=== PATIENT | female | born 1940 | race Caucasian/White ===

== ENCOUNTER → 2020-05-13 15:48 | Outpatient (BNVA) | payer MEDICARE, MEDICAID, SELFPAY | PROVIDERS: Family Provider Internal Medicine; Referring Provider Dermatology; Visit Provider Dermatology | DX: L57.0 Actinic keratosis (principal); L82.1 Other seborrheic keratosis; L81.4 Other melanin hyperpigmentation | CPT/HCPCS: 17000; 17003; 99203 ==

== ENCOUNTER 2020-07-13 13:22 | Outpatient (CLI) | payer MEDICARE, MEDICAID, SELFPAY ==
--- NOTE | 2020-07-13 13:31 | MM_ITS ---
WS: [id number] BILATERAL SCREENING DIGITAL MAMMOGRAM WITH CAD HISTORY: SCREENING COMPARISON: 01/08/2019, 12/28/2017 and 12/19/2016 Bilateral CC and MLO views submitted. Computer aided detection analyzed. Breast composition: There are scattered areas of fibroglandular density. No suspicious masses, microc alcifications or architectural distortion. Numerous benign calcifications and scattered nodules and a symmetries. Stable over multiple prior years. MM/[place] [id number] IMPRESSION: BI-RADS: 2-Benign FOLLOW UP: 1 Year Follow-up
== END 2020-07-13 13:23 | disposition home or self-care (01) ==
LOC: RADSHAW 13:26
PROVIDERS: PCP Internal Medicine; Visit Provider Internal Medicine
DX: Z12.31 Encounter for screening mammogram for malignant neoplasm of breast (principal)
CPT/HCPCS: 77067

== ENCOUNTER 2020-12-21 15:09 | Outpatient (CLI) | payer MEDICARE, MEDICAID, SELFPAY ==
--- NOTE | 2020-12-21 15:18 | XRR_ITS ---
PROCEDURE INFORMATION: Exam: XR Left Ribs with PA Chest Exam date and time: 12/21/2020 3:33 PM Age: 80 years old Clinical indication: Chest wall pain; Prior surgery; Surgery type: Left breast biopsy; Additional info: Pain in L rib TECHNIQUE: Imaging protocol: XR Left ribs with PA chest. Views: 3 views COMPARISON: CR Chest 2 views* [id number] 03/04/2019 11:40 AM FINDINGS: Lungs: The lungs are clear bilaterally. The pulmonary vasculature is normal. Heart/mediastinum: Mediastinum: Stable. Pleural spaces: No pleural effusion. No pneumothorax. Heart/Mediastinum: The heart is normal in size and contour. Vasculature: Moderate aortic arch atherosclerotic calcification without ectasia. Bones/joints: No acute bony abnormality identified. XR/XR ribs LT mn 3V w CXR1V [id number] IMPRESSION: No acute left chest wall bony abnormality identified.
== END 2020-12-21 15:10 | disposition home or self-care (01) ==
LOC: RAD 15:11
PROVIDERS: PCP Internal Medicine; Visit Provider Internal Medicine
DX: R07.81 Pleurodynia (principal)
CPT/HCPCS: 71101

== ENCOUNTER 2021-06-22 14:14 | Outpatient (CLI) | payer MEDICARE, MEDICAID, SELFPAY ==
--- NOTE | 2021-06-22 14:19 | XR_ITS ---
WS: [id number] RIGHT HIP HISTORY: RIGHT HIP PAIN COMPARISON: 06/22/2019 Right hip: No acute fracture or dislocation. Status post RIGHT hip arthroplasty. Arthroplasty compone nts are in good position alignment. No loosening or fracture. XR/XR hip RT 2-3V wo/w pel* [id number] IMPRESSION: 1. No hip fracture. 2. RIGHT hip arthroplasty is unremarkable.
== END 2021-06-22 14:15 | disposition home or self-care (01) ==
PROVIDERS: PCP Internal Medicine; Visit Provider Internal Medicine
DX: M25.551 Pain in right hip (principal); Z96.641 Presence of right artificial hip joint
CPT/HCPCS: 73502

== ENCOUNTER 2025-06-02 15:51 | Emergency (ER) | payer OTHER, MEDICAID, SELFPAY ==
--- OUTSIDE RECORDS SUMMARY | 2024-10-29 06:45 | XMS_ITS ---
Author Organization [facility] Address [address] [place] [address] Care Team Providers Care Counseling Specialist Name Role Phone Bahman Berumen Primary Care Provider UnavailDavid Mari Unavailable [phone] Sarah Gallagher Unavailable [phone] Encounters Encounter Location Date Provider Diagnosis [facility] [address] [place] [place] [address] 10/29/2024 Sarah Gallagher Plan Of Treatment No Information Progress Notes * KEVIN WEEKSOB:1940 ([age] yo F)Acc No.[id number]:10/29/2024 Progress Notes Patient: VICTORINA ZELAYA Provider: NICOLE Fish :1940 A ge:84 Y S ex:Female Date:10/29/2024 Address:[address] [place] [address] A, [address] [facility] [address], [facility] Pcp:Bahman Berumen Subjective: * Chief Complaints: * * Medical History: Objective: * Vitals: Assessment: Plan: * Treatment: * Billing Information: * Visit Code: * Procedure Codes: Care Plan Details* * Electronic signature of JAZ Teixeira on 06/02/2025 at 04:10 PM CDT Sign off status: Pending * Provider: NICOLE Fish Date: 10/29/2024 Generated for Shara beal/Huong/Joel on: 0 06/02/2025 04:10 PM CDT
--- OUTSIDE RECORDS SUMMARY | 2025-02-25 09:00 | XMS_ITS ---
Author Organization [facility] Address [address] [place], [place] [address] [address] Care Team Providers Care Fruit Thinner Machine Operator Name Role Phone Leticia Cruz Primary Care Provider [phone] Hagen [facility] [phone] REASON FOR VISIT L-SPINE W/O, $NO COPAY$-MBW CALLED PT AND PT CONFIRMED MIS W Medications Medication SIG (Take, Route, Frequency, Duration) Notes Start Date End Date Status HYDROcodone-Acetaminophen 7.5-325 MG Tablet 1 tablet as needed for pain Orally three times a day; Duration: 28 days 01/21/2025 Active Encounters Encounter Location Date Provider Diagnosis [facility] [address] [address] 02/25/2025 Hieu Benitez Radiculopathy, lumbar region M54.16 Assessments Encounter Date Diagnosis (ICD Code) Assessment Notes Treatment Notes Treatment Clinical Notes Section Notes 02/25/2025 Radiculopathy, lumbar region (ICD-10 - M54.16) Plan Of Treatment Next Appt Details Follow Up: prn, Reason: Progress Notes * Desmond WEEKSOB:1940 ([age] yo F)Acc No.[id number]:02/25/2025 Patient: Iesha Donohue Provider: William Benitez :1940 A ge:85 Y S ex:Female Date:02/25/2025 Address:[address] [place], [place] [id number] Pcp:Leticia Cruz Subjective: * Chief Complaints: * L -SPINE W/O, $NO COPAY$-MBW CALLED PT AND PT CONFIRMED MIS W * Medications: T akingHYDROcodone-Acetaminophen 7.5-325 MG Tablet 1 tablet as needed for pain Orally three times a day Taking HYDROcodone-Acetaminophen 7.5-325 MG Tablet 1 tablet as needed for pain Orally three times a day Assessment: * Assessment: 1. R adiculopathy, lumbar region - M54.16 (Primary) Plan: * Procedure Codes: [address] LUMBAR SPINE W/O DYE * Follow Up: p rn Billing Information: * Procedure Codes: 04819 CT LUMBAR SPINE W/O DYE. * Electronic signature of DR. Hieu Benitez SR. on 06/02/2025 at 04:10 PM CDT Sign off status: Pending * Provider: William Benitez Date: 0 02/25/2025 Generated for Shara beal/Huong/Joel on: 0 06/02/2025 04:10 PM CDT
--- OUTSIDE RECORDS SUMMARY | 2025-05-28 06:30 | XMS_ITS ---
Author Organization [facility] Address [address] [place] [address] Care Team Providers Care Environmental Professional Name Role Phone AtaBahman Primary Care Provider UnavailDavid Mari Unavailable [phone] Sarah Gallagher Unavailable [phone] REASON FOR VISIT Chronic kidney disease, stage 4 (severe), Type 2 diabetes mellitus with diabetic nephropathy, Obesity, unspecified, Hyperlipidemia, unspecified, Essential (primary) hypertension Medications Medication SIG (Take, Route, Frequency, Duration) Notes Start Date End Date Status Furosemide 20 MG TAKE 1 TABLET BY ONCE DAILY Oral; Duration: 90 Days Active Metoprolol Succinate ER 50 MG Oral; Duration: 90 Days Acti ve Vitamin D3 125 MCG (5000 UT) 1 tablet Or ally Once a day Active oxyBUTYnin Chloride ER 5 MG Oral; Duration: 60 Days Active Naloxone HCl 4 MG/0.1ML CALL 911. SPR CO NTENTS OF ONE SPRAYER (0.1ML) INTO ONE NOSTRIL. REPEAT IN 2-3 MIN IF SYMPTOMS OF OPIOID EMERGENCY PERSIST, ALTERNATE NOSTRILS Nasal; Duration: 30 Days Active BD Swab Single Use Regular - USE 1 SWAB EXTERNALLY TWICE DAILY; Duration: 50 Days Active Levothyroxine Sodium 75 MCG TAKE 1 TABLE T BY MOUTH ONCE DAILY Oral; Duration: 90 Days Active MAGnesium-Oxide 400 (240 Mg) MG TAKE 1 TABLET BY MOUTH ONCE DAILY Oral; Duration: 90 Days Active OneTouch Delica Plus [id number] - USE 1 UNIT TO CHECK GLUCOSE THREE TIMES DAILY; Duration: 34 Days Active Solifenacin Succinate 5 MG Oral; Duration: 90 Days Active Fluticasone Propionate 50 MCG/ACT Nasal; Duration: 60 Days Act jimbo amLODIPine Besylate 10 MG TAKE 1 TABLET BY MOUTH ONCE DAILY DIRECTED Oral; Duration: 90 Days Active Triamcinolone Acetonide 0.1 % APPLY CREAM EXTERNALLY TO AFFECTED AREA TWICE DAILY External; Duration: 30 Days Active FeroSul 325 (65 Fe) MG TAKE 2 TABLETS BY MOUTH ONCE DAILY Oral; Duration: 90 Days Active Belsomra 10 MG Oral; Duration: 30 Days Active Pravastatin Sodium 10 MG TAKE 1 TABLET B Y MOUTH ONCE DAILY Oral; Duration: 30 Days Active OneTouch Verio - In Vitro; Duration: 50 Days Active Jardiance 10 MG TAKE 1 TABLET BY EMILY TH ONCE DAILY Oral; Duration: 90 Days Active HYDROcodone-Acetaminophen 7.5-325 MG Oral; Duration: 28 Days Acti ve Voltaren 1 % as directed Externally Active B Complex Active Encounters Encounter Location Date Provider Diagnosis [facility] [address] [place] [address] 05/28/2025 Sarah Gallagher Plan Of Treatment No Information Progress Notes * KEVIN WEEKSOB:1940 ([age] yo F)Acc No.[id number]:05/28/2025 Progress Notes Patient: VICTORINA ZELAYA Provider: NICOLE Fish :1940 A ge:85 Y S ex:Female Date:05/28/2025 Address:[address] [place] [address], [address] [place] [address] [address] [place] [address], [facility] Pcp:Bahman Berumen Subjective: * Chief Complaints: * 1 . Chronic kidney disease, stage 4 (severe). 2. Type 2 diabetes mellitus with diabetic nephropathy. 3. Obesity, unspecified. 4. Hyperlipidemia, unspecified. 5. Essential (primary) hypertension. * Medical History: * Medications: T aking Vitamin D3 125 MCG (5000 UT) Tablet Chewable 1 tablet Orally Once a day , Taking B Complex , Taking Voltaren 1 % Gel as directed Externally , Taking HYDROcodone-Acetaminophen 7.5-325 MG Tablet Oral , Taking OneTouch Verio - Strip In Vitro , Taking Pravastatin Sodium 10 MG Tablet TAKE 1 TABLET BY MOUTH ONCE DAILY Oral , Taking Jardiance 10 MG Tablet TAKE 1 TABLET BY MOUTH ONCE DAILY Oral , Taking Belsomra 10 MG Tablet Oral , Taking amLODIPine Besylate 10 MG Tablet TAKE 1 TABLET BY MOUTH ONCE DAILY DIRECTED Oral , Taking Fluticasone Propionate 50 MCG/ACT Suspension Nasal , Taking FeroSul 325 (65 Fe) MG Tablet TAKE 2 TABLETS BY MOUTH ONCE DAILY Oral , Taking Triamcinolone Acetonide 0.1 % Cream APPLY CREAM EXTERNALLY TO AFFECTED AREA TWICE DAILY External , Taking MAGnesium-Oxide 400 (240 Mg) MG Tablet TAKE 1 TABLET BY MOUTH ONCE DAILY Oral , Taking Solifenacin Succinate 5 MG Tablet Oral , Taking OneTouch Delica Plus [id number] - Miscellaneous USE 1 UNIT TO CHECK GLUCOSE THREE TIMES DAILY , Taking Levothyroxine Sodium 75 MCG Tablet TAKE 1 TABLET BY MOUTH ONCE DAILY Oral , Taking BD Swab Single Use Regular - Pad USE 1 SWAB EXTERNALLY TWICE DAILY , Taking Naloxone HCl 4 MG/0.1ML Liquid CALL 911. SPR CONTENTS OF ONE SPRAYER (0.1ML) INTO ONE NOSTRIL. REPEAT IN 2-3 MIN IF SYMPTOMS OF OPIOID EMERGENCY PERSIST, ALTERNATE NOSTRILS Nasal , Taking oxyBUTYnin Chloride ER 5 MG Tablet Extended Release 24 Hour Oral , Taking Metoprolol Succinate ER 50 MG Tablet Extended Release 24 Hour Oral , Taking Furosemide 20 MG Tablet TAKE 1 TABLET BY MOUTH ONCE DAILY Oral Objective: * Vitals: Assessment: Plan: * Treatment: * Billing Information: * Visit Code: * Procedure Codes: Care Plan Details* * Electronic signature of JAZ Teixeira on 06/02/2025 at 04:09 PM CDT Sign off status: Pending * Provider: NICOLE Fish Date: 05/28/2025 Generated for Shara beal/Huong/Joel on: 06/02/2025 04:09 PM CDT
--- OUTSIDE RECORDS SUMMARY | 2025-06-02 16:09 | XMS_ITS | Clinical Summary ---
Author Organization [facility] Address [address] [place] [address] Care Team Providers Care Wash House Supervisor Name Role Phone Bahman Berumen DO Primary Care Provider [phone] Allergies Active Allergy Reactions Criticality Noted Date Comments Penicillin Unknown 10/13/2022 Penicillins Rash Low 03/26/2008 Tramadol Nausea And Vomiting,Rash Low 03/26/2008 Medications triamcinolone acetonide (KENALOG) 0.5% cream APPLY CREAM TOPICALLY TO AFFECTED AREA TWICE DAILY Active suvorexant (Belsomra) 5 mg tablet Take one tablet at night within 30 min of bedtime as needed Active solifenacin (VESICARE) 5 MG tablet Take 1 tablet(s) every day by oral route. Active metoprolol succinate (TOPROL XL) 50 MG 24 hr tablet Take 1 tablet by mouth in the morning. Active meclizine (ANTIVERT) 12.5 mg tablet Take 1 tablet every day by oral route as directed for 5 days. Active losartan (COZAAR) 50 MG tablet Take 1.5 tablets every day by oral route as directed for 90 days. Active furosemide (LASIX) 20 MG tablet Take 1 tablet by mouth in the morning. 3 Active levothyroxine (SYNTHROID) 75 MCG tablet Take 1 tablet by mouth in the morning. 3 Active fluticasone propionate (Flonase Allergy Relief) 50 mcg/actuation nasal spray [place] 1 spray every day by intranasal route. 3 Active ferrous sulfate 325 mg (65 mg of elemental iron) tablet Take 2 tablets by mouth in the morning. Active esomeprazole (NexIUM) 40 MG capsule Take 1 capsule by mouth in the morning. 3 Active empagliflozin (Jardiance) 10 mg tablet Take 1 tablet by mouth in the morning. Active clindamycin (CLEOCIN HCL) 300 MG capsule TAKE 2 CAPSULES BY MOUTH 30-60 MIN PRIOR TO DENTAL APPOINTMENT Active atorvastatin (LIPITOR) 40 MG tablet Take 1 tablet by mouth nightly. 3 Active amLODIPine (NORVASC) 10 MG tablet Take 1 tablet every day by oral route as directed for 60 days. 3 Active acetaminophen (Tylenol Arthritis Pain) 650 mg 8 hr tablet Take 1 tablet every 8 hours by oral route as needed for 30 days. 2 Active Immunizations Immunization Administration Dates Next Due DT (pediatric) 08/03/2018 Moderna SARS-CoV-2 Bivalent Booster (6+ y.o.) Tdap (BOOSTRIX, ADACEL) 06/30/2022 influenza, high-dose, quadrivalent (FLUZONE HIGH -DOSE) 06/30/2022,07/31/2021 influenza, injectable, trivalent (AFLURIA/FLUZON E MDV) 07/15/2015 pneumococcal conjugate PCV 13 (PREVNAR 13) 07/15 pneumococcal polysaccharide PPV 23 (PNEUMOVAX 23 ) 06/30/2022,01/26/2022 Social History Tobacco Use Types Packs/Day Years Used Date Smoking Tobacco: Never Assessed Comments Unknown Sex and Gender Information Value Date Recorded Sex Assigned at Not on file Legal Sex Female 12:39 PM CDT Gender Identity Not on file Sexual Orientation Not on file Plan of Treatment Health Maintenance Due Date Last Done Comments Foot Exam 1940 Hemoglobin A1C 1940 Medicare Annual Wellness 1940 Ophthalmology Exam 01/25/1948 Urine Microalbumin 01/25/1948 Mammogram 1978 Colonoscopy 1983 Shingrix (ZOSTER RECOMBINANT) (1 of 2) 01/25/1988 Bone Density Scan (DXA Scan) 2003 RSV 60+ (1 - 1-dose 75+ series) 2013 COVID-19 Vaccine ( season) 2024 06/30/2022, 02/01/2022, 07/31/2021, Additional history exists Influenza Vaccination (#1) 05/02/202506/30, 07/31/2021, 07/15/2015 Td, Tdap Vaccines Adult 06/30/2032 06/30/2022 Pneumococcal Vaccine: 50+ Years Completed 06/30/2022, 01/26/2022, 07/15/2015 HIB Vaccines Aged Out No longer eligi ble based on patient's age to complete this topic HPV Vaccines Aged Out No longer eligi ble based on patient's age to complete this topic Hepatitis A Vaccines Aged Out No long er eligible based on patient's age to complete this topic Hepatitis B Vaccines Aged Out No long er eligible based on patient's age to complete this topic IPV Vaccines Aged Out No longer eligi ble based on patient's age to complete this topic Meningococcal Vaccines Aged Out No lo nger eligible based on patient's age to complete this topic RSV Mab Nirsevimab (Beyfortus) <20 months Aged Out No longer eligibl e based on patient's age to complete this topic Rotavirus Vaccines Aged Out No longer eligible based on patient's age to complete this topic [place] [address] [place] [address] [employer] [place] [employer] Care Teams Wash House Supervisor Relationship Specialty Start Date End Date Bahman Berumen DO [address] [place] [address] PCP - General Family Medicine 05/30/23
--- OUTSIDE RECORDS SUMMARY | 2025-06-02 16:09 | XMS_ITS | Encounter Summary ---
Author Organization [employer] [facility] Address [address] [place] [address] Care Team Providers Care Light Truck Driver Name Role Phone Kwaku Taylor DO Primary Care Provider [phone] Encounter Details Date Type Department Care Team (Latest Contact Info) Description 09/09/2002 Outpatient Historical HIS [facility] Hieu Smith MD [address] [place] [address] HYPERLIPIDEMIA NEC/NOS (Primary Dx); AFTERCARE SHELTER USE MEDICATN Social History Tobacco Use Types Packs/Day Years Used Date Smoking Tobacco: Never Assessed Comments Unknown Sex and Gender Information Value Date Recorded Sex Assigned at Not on file Legal Sex Female 5:31 AM SEED PELLETER Gender Identity Not on file Sexual Orientation Not on file documented as of this encounter Plan of Treatment Not on file documented as of this encounter Visit Diagnoses Diagnosis Other and unspecified hyperlipidemia- Primary Encounter for long-term (current) use of other medications documented in this encounter Care Teams Light Truck Driver Relationship Specialty Start Date End Date Kwaku Taylor DO PCP - General 04/01/08 documented as of this encounter
--- OUTSIDE RECORDS SUMMARY | 2025-06-02 16:10 | XMS_ITS | Encounter Summary ---
Author Organization [employer] [facility] Address [address] [place] [address] Care Team Providers Care Meter Record Clerk Name Role Phone Kwaku Taylor DO Primary Care Provider [phone] Encounter Details Date Type Department Care Team (Latest Contact Info) Description 04/23/2002 Outpatient Historical HIS [facility] Hieu Smith MD [address] [place] [address] HYPERLIPIDEMIA NEC/NOS (Primary Dx); OSTEOPOROSIS NOS; POSTMENOPAUSAL HORMONAL REPLACMT; SCREENING FOR COND NEC Social History Tobacco Use Types Packs/Day Years Used Date Smoking Tobacco: Never Assessed Comments Unknown Sex and Gender Information Value Date Recorded Sex Assigned at Not on file Legal Sex Female 5:31 AM PRODUCTION PAINTER Gender Identity Not on file Sexual Orientation Not on file documented as of this encounter Plan of Treatment Not on file documented as of this encounter Visit Diagnoses Diagnosis Other and unspecified hyperlipidemia- Primary Osteoporosis, unspecified Need for prophylactic hormone replacement therapy (postmenopausal) Screening for other and unspecified genitourinary condition documented in this encounter Care Teams Meter Record Clerk Relationship Specialty Start Date End Date Kwaku Taylor DO PCP - General 04/01/08 documented as of this encounter
--- OUTSIDE RECORDS SUMMARY | 2025-06-02 16:10 | XMS_ITS | Encounter Summary ---
Author Organization [facility] Address [address] [place] [address] Care Team Providers Care Entry Level Project Engineer Name Role Phone Kwaku Taylor DO Primary Care Provider Encounter Details Date Type Department Care Team (Late st Contact Info) Description 09/09/2002 Outpatient Historical HIS [facility] Hieu Smith MD [address] [place] [id number] Social History Tobacco Use Types Packs/Day Years Used Date Smoking Tobacco: Never Assessed Comments Unknown Sex and Gender Information Value Date Recorded Sex Assigned at Not on file Legal Sex Female 5:31 AM CLOTH FOLDER MACHINE Gender Identity Not on file Sexual Orientation Not on file documented as of this encounter Plan of Treatment Not on file documented as of this encounter Visit Diagnoses Not on filedocumented in this encounter Care Teams Entry Level Project Engineer Relationship Specialty Start Date End Date Kwaku Taylor DO PCP - General 04/01/08 documented as of this encounter
--- OUTSIDE RECORDS SUMMARY | 2025-06-02 16:10 | XMS_ITS | Encounter Summary ---
Author Organization [employer] [facility] Address [address] [place] [address] Care Team Providers Care Marketing And Communications Officer Name Role Phone Kwaku Taylor DO Primary Care Provider [phone] Encounter Details Date Type Department Care Team (Latest Contact Info) Description 08/02/2002 Outpatient Historical HIS [facility] Hieu Smith MD [address] [place] [address] AFTERCARE LONG-TERM USE MEDICATN (Primary Dx); HYPERLIPIDEMIA NEC/NOS Social History Tobacco Use Types Packs/Day Years Used Date Smoking Tobacco: Never Assessed Comments Unknown Sex and Gender Information Value Date Recorded Sex Assigned at Not on file Legal Sex Female 5:31 AM COMMISSARY CLERK Gender Identity Not on file Sexual Orientation Not on file documented as of this encounter Plan of Treatment Not on file documented as of this encounter Visit Diagnoses Diagnosis Encounter for long-term (current) use of other medications- Primary Other and unspecified hyperlipidemia documented in this encounter Care Teams Marketing And Communications Officer Relationship Specialty Start Date End Date Kwaku Taylor DO PCP - General 04/01/08 documented as of this encounter
--- OUTSIDE RECORDS SUMMARY | 2025-06-02 16:10 | XMS_ITS | Patient Health Record ---
Author Organization [facility] Address [address] [facility] [place] To [id number] Care Team Providers Care Blackener Name Role Phone Leticia Cruz Primary Care Provider Sakina Mynor Unavailable [phone] Bhupinder MRS. Rutledge Unavailable [phone] Gerhard Frances Unavailable [phone] SagarPage Unavailable [phone] DR. Hieu Benitez SR. Unavailable Christina Carrington Unavailable [phone] Allergies Allergen (clinical drug ingredient) Drug/Non Drug Allergy documented on EMR Reaction Allergy Type Onset Date Status Penicillin Unknown Drug Allergy Active tramadol Tramadol Unknown Drug Allergy Active Results Component Value Reference Range Flag Notes *CT LUMBAR SPINE W/O CONTRAS T [id number] Reviewed date:02/27/2025 11:05:52 AM Interpretation:multilevel foraminal stenosis Performing Lab: Notes/Report: multilevel foraminal stenosis Full Confirmation - Specimen Type Urine Reviewed date:12/30/2024 12:27:46 PM Interpretation: Performing Lab: Notes/Report: 6-HUBERT Negative 20 ng/mL ng/mL 7-Aminoclonazepam Negative 50 ng/mL ng/mL a-Hydroxyalprazolam Negative 50 ng/mL ng/mL Alprazolam Negative 50 ng/mL ng/mL Amphetamine Negative 50 ng/mL ng/mL Benzoylecgonine Negative 50 ng/mL ng/mL Buprenorphine Negative 25 ng/mL ng/mL Carisoprodol Negative 50 ng/mL ng/mL Clonazepam Negative 50 ng/mL ng/mL Codeine Negative 50 ng/mL ng/mL Cyclobenzaprine Negative 50 ng/mL ng/mL Diazepam Negative 50 ng/mL ng/mL EDDP Negative 50 ng/mL ng/mL Fentanyl Negative 3 ng/mL ng/mL Gabapentin Negative 500 ng/mL ng/mL Hydrocodone >500 50 ng/mL ng/mL H Hydromorphone 239 50 ng/mL ng/mL H Lorazepam Negative 50 ng/mL ng/mL MDMA Negative 50 ng/mL ng/mL Meprobamate Negative 50 ng/mL ng/mL Methadone Negative 50 ng/mL ng/mL Methamphetamine Negative 200 ng/mL ng/mL Morphine Negative 50 ng/mL ng/mL Naloxone Negative 50 ng/mL ng/mL Naltrexone Negative 50 ng/mL ng/mL Norbuprenorphine Negative 25 ng/mL ng/mL Nordiazepam Negative 50 ng/mL ng/mL Norfentanyl Negative 10 ng/mL ng/mL Norpropoxyphene Negative 50 ng/mL ng/mL Oxazepam Negative 50 ng/mL ng/mL Oxycodone Negative 50 ng/mL ng/mL Oxymorphone Negative 50 ng/mL ng/mL Pregabalin Negative 200 ng/mL ng/mL Propoxyphene Negative 50 ng/mL ng/mL Tapentadol Negative 50 ng/mL ng/mL Temazepam Negative 50 ng/mL ng/mL Tramadol Negative 50 ng/mL ng/mL THC Negative 50 ng/mL ng/mL Amitriptyline Negative 50 ng/mL ng/mL Carboxyzolpidem Negative 100 ng/mL ng/mL Desmethyldoxepin Negative 50 ng/mL ng/mL Doxepin Negative 50 ng/mL ng/mL Imipramine Negative 50 ng/mL ng/mL Methylphenidate Negative 50 ng/mL ng/mL Nortriptyline Negative 50 ng/mL ng/mL o-Desmethyltramadol Negative 50 ng/mL ng/mL Ritalinic Acid Negative 50 ng/mL ng/mL Desalkylflurazepam Negative 50 ng/mL ng/mL Flunitrazepam Negative 50 ng/mL ng/mL Flurazepam Negative 50 ng/mL ng/mL Ketamine Negative 50 ng/mL ng/mL Meperidine Negative 50 ng/mL ng/mL Mitragynine Negative 50 ng/mL ng/mL Norhydrocodone >500 50 ng/mL ng/mL H Norketamine Negative 50 ng/mL ng/mL Normeperidine Negative 50 ng/mL ng/mL Noroxycodone Negative 50 ng/mL ng/mL PCP Negative 25 ng/mL ng/mL Phentermine Negative 50 ng/mL ng/mL Zaleplon Negative 20 ng/mL ng/mL Trazodone Negative 50 ng/mL ng/mL Full Confirmation - Specimen Type Urine Reviewed date:05/26/2025 08:06:08 PM Interpretation: Performing Lab: Notes/Report: 6-HUBERT Negative 20 ng/mL ng/mL 7-Aminoclonazepam Negative 50 ng/mL ng/mL a-Hydroxyalprazolam Negative 50 ng/mL ng/mL Alprazolam Negative 50 ng/mL ng/mL Amphetamine Negative 50 ng/mL ng/mL Benzoylecgonine Negative 50 ng/mL ng/mL Buprenorphine Negative 25 ng/mL ng/mL Carisoprodol Negative 50 ng/mL ng/mL Clonazepam Negative 50 ng/mL ng/mL Codeine Negative 50 ng/mL ng/mL Cyclobenzaprine Negative 50 ng/mL ng/mL Diazepam Negative 50 ng/mL ng/mL EDDP Negative 50 ng/mL ng/mL Fentanyl Negative 3 ng/mL ng/mL Gabapentin Negative 500 ng/mL ng/mL Hydrocodone >500 50 ng/mL ng/mL H Hydromorphone 96 50 ng/mL ng/mL H Lorazepam Negative 50 ng/mL ng/mL MDMA Negative 50 ng/mL ng/mL Meprobamate Negative 50 ng/mL ng/mL Methadone Negative 50 ng/mL ng/mL Methamphetamine Negative 200 ng/mL ng/mL Morphine Negative 50 ng/mL ng/mL Naloxone Negative 50 ng/mL ng/mL Naltrexone Negative 50 ng/mL ng/mL Norbuprenorphine Negative 25 ng/mL ng/mL Nordiazepam Negative 50 ng/mL ng/mL Norfentanyl Negative 10 ng/mL ng/mL Norpropoxyphene Negative 50 ng/mL ng/mL Oxazepam Negative 50 ng/mL ng/mL Oxycodone Negative 50 ng/mL ng/mL Oxymorphone Negative 50 ng/mL ng/mL Pregabalin Negative 200 ng/mL ng/mL Propoxyphene Negative 50 ng/mL ng/mL Tapentadol Negative 50 ng/mL ng/mL Temazepam Negative 50 ng/mL ng/mL Tramadol Negative 50 ng/mL ng/mL THC Negative 50 ng/mL ng/mL Amitriptyline Negative 50 ng/mL ng/mL Carboxyzolpidem Negative 100 ng/mL ng/mL Desmethyldoxepin Negative 50 ng/mL ng/mL Doxepin Negative 50 ng/mL ng/mL Imipramine Negative 50 ng/mL ng/mL Methylphenidate Negative 50 ng/mL ng/mL Nortriptyline Negative 50 ng/mL ng/mL o-Desmethyltramadol Negative 50 ng/mL ng/mL Ritalinic Acid Negative 50 ng/mL ng/mL Desalkylflurazepam Negative 50 ng/mL ng/mL Flunitrazepam Negative 50 ng/mL ng/mL Flurazepam Negative 50 ng/mL ng/mL Ketamine Negative 50 ng/mL ng/mL Meperidine Negative 50 ng/mL ng/mL Mitragynine Negative 50 ng/mL ng/mL Norhydrocodone 276 50 ng/mL ng/mL H Norketamine Negative 50 ng/mL ng/mL Normeperidine Negative 50 ng/mL ng/mL Noroxycodone Negative 50 ng/mL ng/mL PCP Negative 25 ng/mL ng/mL Phentermine Negative 50 ng/mL ng/mL Zaleplon Negative 20 ng/mL ng/mL Trazodone Negative 50 ng/mL ng/mL Full Confirmation - Specimen Type Urine Reviewed date:04/28/2025 01:45:08 PM Interpretation: Performing Lab: Notes/Report: 6-HUBERT Negative 20 ng/mL ng/mL 7-Aminoclonazepam Negative 50 ng/mL ng/mL a-Hydroxyalprazolam Negative 50 ng/mL ng/mL Alprazolam Negative 50 ng/mL ng/mL Amphetamine Negative 50 ng/mL ng/mL Benzoylecgonine Negative 50 ng/mL ng/mL Buprenorphine Negative 25 ng/mL ng/mL Carisoprodol Negative 50 ng/mL ng/mL Clonazepam Negative 50 ng/mL ng/mL Codeine Negative 50 ng/mL ng/mL Cyclobenzaprine Negative 50 ng/mL ng/mL Diazepam Negative 50 ng/mL ng/mL EDDP Negative 50 ng/mL ng/mL Fentanyl Negative 3 ng/mL ng/mL Gabapentin Negative 500 ng/mL ng/mL Hydrocodone 136 50 ng/mL ng/mL H Hydromorphone Negative 50 ng/mL ng/mL Lorazepam Negative 50 ng/mL ng/mL MDMA Negative 50 ng/mL ng/mL Meprobamate Negative 50 ng/mL ng/mL Methadone Negative 50 ng/mL ng/mL Methamphetamine Negative 200 ng/mL ng/mL Morphine Negative 50 ng/mL ng/mL Naloxone Negative 50 ng/mL ng/mL Naltrexone Negative 50 ng/mL ng/mL Norbuprenorphine Negative 25 ng/mL ng/mL Nordiazepam Negative 50 ng/mL ng/mL Norfentanyl Negative 10 ng/mL ng/mL Norpropoxyphene Negative 50 ng/mL ng/mL Oxazepam Negative 50 ng/mL ng/mL Oxycodone Negative 50 ng/mL ng/mL Oxymorphone Negative 50 ng/mL ng/mL Pregabalin Negative 200 ng/mL ng/mL Propoxyphene Negative 50 ng/mL ng/mL Tapentadol Negative 50 ng/mL ng/mL Temazepam Negative 50 ng/mL ng/mL Tramadol Negative 50 ng/mL ng/mL THC Negative 50 ng/mL ng/mL Amitriptyline Negative 50 ng/mL ng/mL Carboxyzolpidem Negative 100 ng/mL ng/mL Desmethyldoxepin Negative 50 ng/mL ng/mL Doxepin Negative 50 ng/mL ng/mL Imipramine Negative 50 ng/mL ng/mL Methylphenidate Negative 50 ng/mL ng/mL Nortriptyline Negative 50 ng/mL ng/mL o-Desmethyltramadol Negative 50 ng/mL ng/mL Ritalinic Acid Negative 50 ng/mL ng/mL Desalkylflurazepam Negative 50 ng/mL ng/mL Flunitrazepam Negative 50 ng/mL ng/mL Flurazepam Negative 50 ng/mL ng/mL Ketamine Negative 50 ng/mL ng/mL Meperidine Negative 50 ng/mL ng/mL Mitragynine Negative 50 ng/mL ng/mL Norhydrocodone 167 50 ng/mL ng/mL H Norketamine Negative 50 ng/mL ng/mL Normeperidine Negative 50 ng/mL ng/mL Noroxycodone Negative 50 ng/mL ng/mL PCP Negative 25 ng/mL ng/mL Phentermine Negative 50 ng/mL ng/mL Zaleplon Negative 20 ng/mL ng/mL Trazodone Negative 50 ng/mL ng/mL Presumptive Drug Test - Spec imen Type Urine Reviewed date:04/28/2025 01:45:08 PM Interpretation: Performing Lab: Notes/Report: Opiates Screen Positive 150 ng/mL ng/ml H Benzodiazepines Screen Negative 150 ng/mL ng/ml Amphetamines Screen Negative 600 ng/mL ng/ml Cocaine Screen Negative 150 ng/mL ng/ml Methadone Screen Negative 150 ng/mL ng/ml 6-HUBERT Screen Negative 60 ng/mL ng/ml Methamphetamine Screen Negative 600 ng/mL ng/ml Fentanyl Screen Negative 9 ng/mL ng/ml Tricyclic Antidepressants Screen Negative 150 ng/mL ng/m l Buprenorphine Screen Negative 75 ng/mL ng/ml Cannabis Screen Negative 150 ng/mL ng/ml Presumptive Drug Test - Spec imen Type Urine Reviewed date:05/26/2025 08:06:08 PM Interpretation: Performing Lab: Notes/Report: Opiates Screen Positive 150 ng/mL ng/ml H Benzodiazepines Screen Negative 150 ng/mL ng/ml Amphetamines Screen Negative 600 ng/mL ng/ml Cocaine Screen Negative 150 ng/mL ng/ml Methadone Screen Negative 150 ng/mL ng/ml 6-HUBERT Screen Negative 60 ng/mL ng/ml Methamphetamine Screen Negative 600 ng/mL ng/ml Fentanyl Screen Negative 9 ng/mL ng/ml Tricyclic Antidepressants Screen Negative 150 ng/mL ng/m l Buprenorphine Screen Negative 75 ng/mL ng/ml Cannabis Screen Negative 150 ng/mL ng/ml Presumptive Drug Test - Spec imen Type Urine Reviewed date:12/30/2024 12:27:46 PM Interpretation: Performing Lab: Notes/Report: Opiates Screen Positive 150 ng/mL ng/ml H Benzodiazepines Screen Negative 150 ng/mL ng/ml Amphetamines Screen Negative 600 ng/mL ng/ml Cocaine Screen Negative 150 ng/mL ng/ml Methadone Screen Negative 150 ng/mL ng/ml 6-HUBERT Screen Negative 60 ng/mL ng/ml Methamphetamine Screen Negative 600 ng/mL ng/ml Fentanyl Screen Negative 9 ng/mL ng/ml Tricyclic Antidepressants Screen Negative 150 ng/mL ng/m l Buprenorphine Screen Negative 75 ng/mL ng/ml Cannabis Screen Negative 150 ng/mL ng/ml Reason For Referral No Information Medications Medication SIG (Take, Route, Frequency, Duration) Notes Start Date End Date Status HYDROcodone-Acetaminophen 7.5-325 MG Tablet 1 tablet as needed for pain Orally three times a day; Duration: 28 days 04/22/2025 Active Problems Problem Type SNOMED Code ICD Code Onset Dates Problem Status W/U Status Risk Notes Problem Chronic pain (70485599) Other chronic pain (G89.29) Active confirmed Problem Chronic pain syndrome (459288532) Chronic pain syndrome (G89.4) Active confirmed Problem Arthralgia of the pelvic region and thigh (447626099) Pain in right hip (M25.551) Active confirmed Problem Pain of left hip joint (finding) (145392548080825) Pain in left hip (M25.552) Active confirmed Problem Pain of right knee region (finding) (198202186325352) Pain in right knee (M25.561) Active confirmed Problem Pain of left knee joint (finding) (398060094898402) Pain in left knee (M25.562) Active confirmed Problem Lumbar radiculopathy (934744577) Radiculopathy, lumbar region (M54.16) Active confirmed Problem Cervicalgia (30091469) Cervicalgia (M54.2) Active confirmed Problem Sciatica (56562206) Lumbago with sciatica, right side (M54.41) Active confirmed Problem Sciatica (67262584) Lumbago with sciatica, left side (M54.42) Active confirmed Problem High risk drug monitoring status (372335360) MCFP (current) use of opiate analgesic (Z79.891) Active confirmed Problem Weakness of both lower extremities (618250798022535) Weakness of both lower extremities (R29.898) Active confirmed Problem Postprocedural states (979082891) History of back surgery (Z98.890) Active confirmed Problem Arthralgia of the pelvic region and thigh (309369421) Left hip pain (M25.552) Active confirmed Problem History of hip surgery (920996585) History of hip surgery (Z98.890) Active confirmed Problem Arthralgia of the pelvic region and thigh (362443581) Right hip pain (M25.551) Active confirmed Problem Lumbar pain (933875839) Lumbar pain (M54.50) Active confirmed Problem Lumbar spondylosis (101930088) Lumbar spondylosis (M47.816) Active confirmed Problem Disorder of musculoskeletal system (327548) Arm weakness (R29.898) Active confirmed Problem History of knee surgery (823379133) Hx of knee surgery (Z98.890) Active confirmed Problem Does mobilize using walker (finding) (492805037) Dependent on walker for ambulation (Z99.89) Active confirmed Vital Signs Heart Rate 72 /min 04/22/2025 Respiratory Rate 20 /min 04/22/2025 Blood pressure diastolic 75 mm Hg 04/22/2025 Oximetry 100 % 04/22/2025 Height-cm 162.56 cm 04/22/2025 Weight-kg 70.76 kg 04/22/2025 Height 64 in 04/22/2025 Blood pressure systolic 115 mm Hg 04/22/2025 Weight 156 lbs 04/22/2025 BMI 26.77 kg/m2 04/22/2025 Encounters Encounter Location Date Provider Diagnosis [facility] [address] 02/25/2025 Hieu Benitez Radiculopathy, lumba [facility] region M54.16 [facility] [place] [address] [facility] [place] [address] 02/25/2025 Hieu Benitez [facility]FP (current) use of opiate analgesic Z79.891 and MCFP use of drug Z79.899 [facility] [address] 06/13/2024 Frances Hennessy Chronic pain syndrom e G89.4 ; 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 ; Radiculopathy, lumbar region M54.16 ; Pain, joint, knee, right M25.561 ; Right hip pain M25.551 and History of back surgery Z98.890 [facility] [address] 07/11/2024 Hieu Benitez Chronic pain syndrom e G89.4 ; [facility]FP (current) use of opiate analgesic Z79.891 ; Other chronic pain G89.29 ; Lumbago with sciatica, right side M54.41 ; Lumbago with sciatica, left side M54.42 ; Cervicalgia M54.2 ; Pain in right hip M25.551 ; Pain in left hip M25.552 ; History of back surgery Z98.890 ; Weakness of both lower extremities R29.898 ; Arm weakness R29.898 ; Dependent on walker for ambulation Z99.89 ; Hx of knee surgery Z98.890 ; History of hip surgery Z98.890 ; Pain in right knee M25.561 and Pain in left knee M25.562 [facility] [address] [place] [address] 08/06/2024 Christina Zeb Chronic pain syndrom e G89.4 ; [facility]FP (current) use of opiate analgesic Z79.891 ; Other chronic pain G89.29 ; Lumbago with sciatica, right side M54.41 ; Lumbago with sciatica, left side M54.42 ; Cervicalgia M54.2 ; Pain in right hip M25.551 ; Pain in left hip M25.552 ; History of back surgery Z98.890 ; Weakness of both lower extremities R29.898 ; Arm weakness R29.898 ; Dependent on walker for ambulation Z99.89 ; Hx of knee surgery Z98.890 ; History of hip surgery Z98.890 ; Pain in right knee M25.561 and Pain in left knee M25.562 [facility] [address] [place] [address] 08/06/2024 Frances Hennessy Left lumbar radiculopathy M54.16 [facility] [place] [address] 09/03/2024 Page Keith Chronic pain syndrom e G89.4 ; [facility]FP (current) use of opiate analgesic Z79.891 ; Lumbar pain M54.50 ; Radiculopathy, lumbar region M54.16 ; Right hip pain M25.551 and Left hip pain M25.552 [facility] [address] [place] [address] 10/01/2024 Frances Hennessy Chronic pain syndrom e G89.4 ; [facility]FP (current) use of opiate analgesic Z79.891 ; Lumbar pain M54.50 ; Radiculopathy, lumbar region M54.16 ; Right hip pain M25.551 ; Left hip pain M25.552 and Lumbar spondylosis M47.816 [facility] [address] [place] [address] 10/29/2024 Frances Hennessy Chronic pain syndrom e G89.4 ; [facility]FP (current) use of opiate analgesic Z79.891 ; Lumbar pain M54.50 ; Radiculopathy, lumbar region M54.16 ; Right hip pain M25.551 ; Left hip pain M25.552 and Lumbar spondylosis M47.816 [facility] [address] [place] [address] 11/26/2024 Christina Carrington Lumbar pain M54.50 ; Radiculopathy, lumbar region M54.16 ; Right hip pain M25.551 ; Left hip pain M25.552 ; Lumbar spondylosis M47.816 ; Chronic pain syndrome G89.4 and 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 [facility] [address] [place] [address] 12/24/2024 Christina Carrington Lumbar pain M54.50 ; Radiculopathy, lumbar region M54.16 ; Right hip pain M25.551 ; Left hip pain M25.552 ; Lumbar spondylosis M47.816 ; Chronic pain syndrome G89.4 and [facility]FP (current) use of opiate analgesic Z79.891 [facility] [address] [facility] [place] [address] 12/24/2024 Christina Carrington [facility]FP (current) use of opiate analgesic Z79.891 and predatory animal exterminator use of drug Z79.899 [facility] [address] [place] [address] 01/21/2025 Christina Carrington Lumbar pain M54.50 ; Radiculopathy, lumbar region M54.16 ; Right hip pain M25.551 ; Left hip pain M25.552 ; Lumbar spondylosis M47.816 ; Chronic pain syndrome G89.4 and 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 [facility] [address] [place] [address] 02/25/2025 Hieu Benitez Chronic pain syndrom e G89.4 ; Radiculopathy, lumbar region M54.16 ; Lumbar pain M54.50 ; Right hip pain M25.551 ; Left hip pain M25.552 ; Lumbar spondylosis M47.816 and 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 [facility] [address] [place] [address] 03/25/2025 Hieu Hallmyer Chronic pain syndrom e G89.4 ; Radiculopathy, lumbar region M54.16 ; Lumbar pain M54.50 ; Right hip pain M25.551 ; Left hip pain M25.552 ; Lumbar spondylosis M47.816 and [facility]FP (current) use of opiate analgesic Z79.891 [facility] [address] [facility] [place] [address] 04/22/2025 Christina Carrington Chronic pain syndrom e G89.4 ; Radiculopathy, lumbar region M54.16 ; Lumbar pain M54.50 ; Right hip pain M25.551 ; Left hip pain M25.552 ; Lumbar spondylosis M47.816 and [facility] (current) use of opiate analgesic Z79.891 [facility] [place] [address] [place] [facility] [place] [place] [address] 04/22/2025 Christina Carrington 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 and predatory animal exterminator use of drug Z79.899 [facility] [place] [address] [place] [address] 06/13/2024 Hieu Hallmyer Chronic pain syndrom e G89.4 [facility] [address] [place] [address] 08/06/2024 Hieu Hallmyer Chronic pain syndrom e G89.4 [facility] [address] [place] [address] 09/03/2024 Hieu Essmyer Chronic pain syndrom e G89.4 [facility] [address] [place] [address] 10/01/2024 Hieu Essmyer Chronic pain syndrom e G89.4 [facility] [address] [place] [address] 10/29/2024 Hieu Essmyer Chronic pain syndrom e G89.4 [facility] [address] [place] [address] 11/26/2024 Hieu Benitez Chronic pain syndrom e G89.4 [facility] [address] [place] [address] 12/24/2024 Hieu Benitez Chronic pain syndrom e G89.4 [facility] [address] [place] [address] 01/21/2025 Hieu Benitez Chronic pain syndrom e G89.4 [facility] [address] [place] [address] 04/22/2025 Mynor Carcamofredy Chronic pain syndrom e G89.4 Assessments Encounter Date Diagnosis (ICD Code) Assessment Notes Treatment Notes Treatment Clinical Notes Section Notes 06/13/2024 Chronic pain syndrome (ICD-10 - G89.4) 06/13/2024 predatory animal exterminator (current) use of opiate analgesic (ICD-10 - Z79.891) 07/11/2024 Chronic pain syndrome (ICD-10 - G89.4) 06/13/2024 Chronic pain syndrome (ICD-10 - G89.4) 07/11/2024 MCFP (current) use of opiate analgesic (ICD-10 - Z79.891) 08/06/2024 Chronic pain syndrome (ICD-10 - G89.4) 08/06/2024 Chronic pain syndrome (ICD-10 - G89.4) 08/06/2024 Left lumbar radiculopathy (ICD-10 - M54.16) 09/03/2024 Chronic pain syndrome (ICD-10 - G89.4) Reviewed X-ray L-spine with patient this visit. 09/03/2024 MCFP (current) use of opiate analgesic (ICD-10 - Z79.891) 09/03/2024 Chronic pain syndrome (ICD-10 - G89.4) 10/01/2024 Chronic pain syndrome (ICD-10 - G89.4) 10/01/2024 [facility]FP (current) use of opiate analgesic (ICD-10 - Z79.891) 10/01/2024 Chronic pain syndrome (ICD-10 - G89.4) 10/29/2024 Chronic pain syndrome (ICD-10 - G89.4) 10/29/2024 Chronic pain syndrome (ICD-10 - G89.4) 11/26/2024 Radiculopathy, lumbar region (ICD-10 - M54.16) CT BEING SCHEDULED. 11/26/2024 Lumbar pain (ICD-10 - M54.50) 11/26/2024 Chronic pain syndrome (ICD-10 - G89.4) 12/24/2024 Chronic pain syndrome (ICD-10 - G89.4) 12/24/2024 predatory animal exterminator (current) use of opiate analgesic (ICD-10 - Z79.891) 12/24/2024 Lumbar pain (ICD-10 - M54.50) 01/21/2025 Lumbar pain (ICD-10 - M54.50) 01/21/2025 Chronic pain syndrome (ICD-10 - G89.4) 02/25/2025 predatory animal exterminator (current) use of opiate analgesic (ICD-10 - Z79.891) 02/25/2025 Chronic pain syndrome (ICD-10 - G89.4) 02/25/2025 Radiculopathy, lumbar region (ICD-10 - M54.16) 02/25/2025 Radiculopathy, lumbar region (ICD-10 - M54.16) 03/25/2025 Chronic pain syndrome (ICD-10 - G89.4) 03/25/2025 Radiculopathy, lumbar region (ICD-10 - M54.16) 04/22/2025 [facility]FP (current) use of opiate analgesic (ICD-10 - Z79.891) 04/22/2025 Chronic pain syndrome (ICD-10 - G89.4) 04/22/2025 Chronic pain syndrome (ICD-10 - G89.4) 04/22/2025 Radiculopathy, lumbar region (ICD-10 - M54.16) 04/22/2025 predatory animal exterminator use of drug (ICD-10 - Z79.899) 03/25/2025 Lumbar pain (ICD-10 - M54.50) 02/25/2025 Lumbar pain (ICD-10 - M54.50) 02/25/2025 [facility]FP use of drug (ICD-10 - Z79.899) 01/21/2025 Radiculopathy, lumbar region (ICD-10 - M54.16) CT BEING SCHEDULED. 12/24/2024 predatory animal exterminator use of drug (ICD-10 - Z79.899) 12/24/2024 Radiculopathy, lumbar region (ICD-10 - M54.16) CT BEING SCHEDULED. 11/26/2024 Right hip pain (ICD-10 - M25.551) 10/01/2024 Lumbar pain (ICD-10 - M54.50) 10/29/2024 MCFP (current) use of opiate analgesic (ICD-10 - Z79.891) 09/03/2024 Lumbar pain (ICD-10 - M54.50) 08/06/2024 MCFP (current) use of opiate analgesic (ICD-10 - Z79.891) 07/11/2024 Other chronic pain (ICD-10 - G89.29) 06/13/2024 Radiculopathy, lumbar region (ICD-10 - M54.16) 06/13/2024 Pain, joint, knee, right (ICD-10 - M25.561) 07/11/2024 Lumbago with sciatica, right side (ICD-10 - M54.41) 08/06/2024 Other chronic pain (ICD-10 - G89.29) 10/01/2024 Radiculopathy, lumbar region (ICD-10 - M54.16) XRAY COMPLETED AUG 2024, REVIEWED TODAY. WILL GET CT LSPINE FOR FURTHER EVALUATION AND MANAGEMENT. 09/03/2024 Radiculopathy, lumbar region (ICD-10 - M54.16) 11/26/2024 Left hip pain (ICD-10 - M25.552) 10/29/2024 Lumbar pain (ICD-10 - M54.50) 12/24/2024 Right hip pain (ICD-10 - M25.551) 01/21/2025 Right hip pain (ICD-10 - M25.551) 02/25/2025 Right hip pain (ICD-10 - M25.551) 03/25/2025 Right hip pain (ICD-10 - M25.551) 04/22/2025 Lumbar pain (ICD-10 - M54.50) 04/22/2025 Right hip pain (ICD-10 - M25.551) 03/25/2025 Left hip pain (ICD-10 - M25.552) 02/25/2025 Left hip pain (ICD-10 - M25.552) 01/21/2025 Left hip pain (ICD-10 - M25.552) 12/24/2024 Left hip pain (ICD-10 - M25.552) 11/26/2024 Lumbar spondylosis (ICD-10 - M47.816) 10/01/2024 Right hip pain (ICD-10 - M25.551) 10/29/2024 Radiculopathy, lumbar region (ICD-10 - M54.16) CT BEING SCHEDULED. 09/03/2024 Right hip pain (ICD-10 - M25.551) 08/06/2024 Lumbago with sciatica, right side (ICD-10 - M54.41) 07/11/2024 Lumbago with sciatica, left side (ICD-10 - M54.42) 06/13/2024 Right hip pain (ICD-10 - M25.551) 07/11/2024 Cervicalgia (ICD-10 - M54.2) 06/13/2024 History of back surgery (ICD-10 - Z98.890) 08/06/2024 Lumbago with sciatica, left side (ICD-10 - M54.42) 09/03/2024 Left hip pain (ICD-10 - M25.552) 10/01/2024 Left hip pain (ICD-10 - M25.552) 10/29/2024 Right hip pain (ICD-10 - M25.551) 11/26/2024 Chronic pain syndrome (ICD-10 - G89.4) 12/24/2024 Lumbar spondylosis (ICD-10 - M47.816) 01/21/2025 Lumbar spondylosis (ICD-10 - M47.816) 02/25/2025 Lumbar spondylosis (ICD-10 - M47.816) 03/25/2025 Lumbar spondylosis (ICD-10 - M47.816) 04/22/2025 Left hip pain (ICD-10 - M25.552) 04/22/2025 Lumbar spondylosis (ICD-10 - M47.816) 03/25/2025 predatory animal exterminator (current) use of opiate analgesic (ICD-10 - Z79.891) 02/25/2025 [facility] (current) use of opiate analgesic (ICD-10 - Z79.891) 01/21/2025 Chronic pain syndrome (ICD-10 - G89.4) 12/24/2024 Chronic pain syndrome (ICD-10 - G89.4) 11/26/2024 predatory animal exterminator (current) use of opiate analgesic (ICD-10 - Z79.891) 10/29/2024 Left hip pain (ICD-10 - M25.552) 10/01/2024 Lumbar spondylosis (ICD-10 - M47.816) 08/06/2024 Cervicalgia (ICD-10 - M54.2) 07/11/2024 Pain in right hip (ICD-10 - M25.551) 07/11/2024 Pain in left hip (ICD-10 - M25.552) 08/06/2024 Pain in right hip (ICD-10 - M25.551) 10/29/2024 Lumbar spondylosis (ICD-10 - M47.816) 12/24/2024 predatory animal exterminator (current) use of opiate analgesic (ICD-10 - Z79.891) 01/21/2025 predatory animal exterminator (current) use of opiate analgesic (ICD-10 - Z79.891) 04/22/2025 predatory animal exterminator (current) use of opiate analgesic (ICD-10 - Z79.891) 08/06/2024 Pain in left hip (ICD-10 - M25.552) 07/11/2024 History of back surgery (ICD-10 - Z98.890) 08/06/2024 History of back surgery (ICD-10 - Z98.890) 07/11/2024 Weakness of both lower extremities (ICD-10 - R29.898) 08/06/2024 Weakness of both lower extremities (ICD-10 - R29.898) 07/11/2024 Arm weakness (ICD-10 - R29.898) 07/11/2024 Dependent on walker for ambulation (ICD-10 - Z99.89) 08/06/2024 Arm weakness (ICD-10 - R29.898) 08/06/2024 Dependent on walker for ambulation (ICD-10 - Z99.89) 07/11/2024 Hx of knee surgery (ICD-10 - Z98.890) 07/11/2024 History of hip surgery (ICD-10 - Z98.890) 08/06/2024 Hx of knee surgery (ICD-10 - Z98.890) 08/06/2024 History of hip surgery (ICD-10 - Z98.890) 07/11/2024 Pain in right knee (ICD-10 - M25.561) 07/11/2024 Pain in left knee (ICD-10 - M25.562) 08/06/2024 Pain in right knee (ICD-10 - M25.561) 08/06/2024 Pain in left knee (ICD-10 - M25.562) 06/13/2024 Other During the patient's visit today, we discussed their chronic pain, including the onset, duration, aggravating and relieving factors, nature of the pain, and their pain scale. We attempted to identify how the pain affected the patient's daily activities, mobility, mood, sleep, and relationships. We discussed both the long and short-term goals for pain management. We discussed the current medications including the dose, effectiveness, and potential side effects. Non-opioid therapies were considered, including NSAIDs and other adjuvant medications. We discussed the importance of exercise and recommended tailored exercises for the patient. We discussed physical therapy and potential referral to a physical therapist, if appropriate. We discussed the risks/benefits of alternative treatments such as acupuncture, care transition mgr, massage, and biofeedback. We discussed behavioral health and coping strategies. If applicable, we performed a PHQ-9 and JOSE GUADALUPE-7 with the patient. If the patient scored as having anxiety or depression, they were given education on the diagnosis. We discussed the importance of addressing any mental health concerns as mental health disorders are a common comorbidity of chronic pain. We discussed techniques to reduce stress and promote relaxation. If applicable, the patient was offered a referral to behavioral health. We discussed lifestyle modifications, including getting appropriate sleep, eating a healthy diet, and striving to control their weight. We discussed avoiding activities that exacerbate their pain. We discussed that we would reassess their pain scale and adjust their care plan as needed during future visits. 07/11/2024 Other During the patient's visit today, we discussed their chronic pain, including the onset, duration, aggravating and relieving factors, nature of the pain, and their pain scale. We attempted to identify how the pain affected the patient's daily activities, mobility, mood, sleep, and relationships. We discussed both the long and short-term goals for pain management. We discussed the current medications including the dose, effectiveness, and potential side effects. Non-opioid therapies were considered, including NSAIDs and other adjuvant medications. We discussed the importance of exercise and recommended tailored exercises for the patient. We discussed physical therapy and potential referral to a physical therapist, if appropriate. We discussed the risks/benefits of alternative treatments such as acupuncture, care transition mgr, massage, and biofeedback. We discussed behavioral health and coping strategies. If applicable, we performed a PHQ-9 and JOSE GUADALUPE-7 with the patient. If the patient scored as having anxiety or depression, they were given education on the diagnosis. We discussed the importance of addressing any mental health concerns as mental health disorders are a common comorbidity of chronic pain. We discussed techniques to reduce stress and promote relaxation. If applicable, the patient was offered a referral to behavioral health. We discussed lifestyle modifications, including getting appropriate sleep, eating a healthy diet, and striving to control their weight. We discussed avoiding activities that exacerbate their pain. We discussed that we would reassess their pain scale and adjust their care plan as needed during future visits. 08/06/2024 Other During the patient's visit today, we discussed their chronic pain, including the onset, duration, aggravating and relieving factors, nature of the pain, and their pain scale. We attempted to identify how the pain affected the patient's daily activities, mobility, mood, sleep, and relationships. We discussed both the long and short-term goals for pain management. We discussed the current medications including the dose, effectiveness, and potential side effects. Non-opioid therapies were considered, including NSAIDs and other adjuvant medications. We discussed the importance of exercise and recommended tailored exercises for the patient. We discussed physical therapy and potential referral to a physical therapist, if appropriate. We discussed the risks/benefits of alternative treatments such as acupuncture, care transition mgr, massage, and biofeedback. We discussed behavioral health and coping strategies. If applicable, we performed a PHQ-9 and JOSE GUADLAUPE-7 with the patient. If the patient scored as having anxiety or depression, they were given education on the diagnosis. We discussed the importance of addressing any mental health concerns as mental health disorders are a common comorbidity of chronic pain. We discussed techniques to reduce stress and promote relaxation. If applicable, the patient was offered a referral to behavioral health. We discussed lifestyle modifications, including getting appropriate sleep, eating a healthy diet, and striving to control their weight. We discussed avoiding activities that exacerbate their pain. We discussed that we would reassess their pain scale and adjust their care plan as needed during future visits. 09/03/2024 Other Will continue all medication as previously prescribed, as patient reports effective. Narcotic prescription signed per Dr. Benitez. Patient denies any side effects, states regimen is helping. Discussed the continuous churn buttermaker risk (ie. Addiction, oversedation, respiratory depression, and even dealth by overdose) The patient has pathology and justification for chronic use of narcotics.Discussed the continuous churn buttermaker risk of being on opiate therapy, patient is aware and accepts the risk. The patient is not to drive or operate heavy equipment until knows how the medication will make them feel. Also discussed with the patient the new CDC guidelines regarding benzodiazepines and opiates. The fact that the CDC does not recommend taking both of these medications on an on-going basis. If the medication is prescribed b another physician we strongly discourage this practice. Should the patient continue to take benzodiazepines and opiates together despite the warning it is at their own risk. During the patient's visit today, we discussed their chronic pain, including the onset, duration, aggravating and relieving factors, nature of the pain, and their pain scale. We attempted to identify how the pain affected the patient's daily activities, mobility, mood, sleep, and relationships. We discussed both the long and short-term goals for pain management.We discussed the current medications including the dose, effectiveness, and potential side effects. Non-opioid therapies were considered, including NSAIDs and other adjuvant medications.We discussed the importance of exercise and recommended tailored exercises for the patient. We discussed physical therapy and potential referral to a physical therapist, if appropriate.We discussed the risks/benefits of alternative treatments such as acupuncture, care transition mgr, massage, and biofeedback.We discussed behavioral health and coping strategies. If applicable, we performed a PHQ-9 and JOSE GUADALUPE-7 with the patient. If the patient scored as having anxiety or depression, they were given education on the diagnosis. We discussed the importance of addressing any mental health concerns as mental health disorders are a common comorbidity of chronic pain. We discussed techniques to reduce stress and promote relaxation. If applicable, the patient was offered a referral to behavioral health.We discussed lifestyle modifications, including getting appropriate sleep, eating a healthy diet, and striving to control their weight. We discussed avoiding activities that exacerbate their pain.We discussed that we would reassess their pain scale and adjust their care plan as needed during future visits.Discussed all the risk, side effects, and drug interactions for continuous churn buttermaker use of narcotics. The patient understands and is aware regarding all the risk involved. Also discussed overdose prevention plan including Narcan. Chronic Opioid management - Patient continues to deny signs or symptoms of addiction, denies constipation. Continue medications as prescribed. 10/01/2024 Other XRAY ALSO SHOWED OSTEOPOROSIS CHANGES, RECOMMENED PATIENT TO FOLLOW-UP WITH PCP FOR FURHTER EVAUATION AND MANAGEMENT WILL GIVE PATIENT COPY OF RESULTS TO TAKE TO PCP. 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 PATIENT TO FOLLOW-UP WITH PCP ABOUT RESULTS FOR FURTHER EVALUATION AND RECOMMENDED US AORTA AND LIPID PANEL. WILL GIVE PATIENT COPY OF RESULTS TO TAKE TO PCP FOR FOLLOW-UP. Will continue all medication as previously prescribed, as patient reports effective. Narcotic prescription signed per Dr. Benitez. Patient denies any side effects, states regimen is helping. Discussed the continuous churn buttermaker risk (ie. Addiction, oversedation, respiratory depression, and even dealth by overdose) The patient has pathology and justification for chronic use of narcotics.Discussed the continuous churn buttermaker risk of being on opiate therapy, patient is aware and accepts the risk. The patient is not to drive or operate heavy equipment until knows how the medication will make them feel. Also discussed with the patient the new CDC guidelines regarding benzodiazepines and opiates. The fact that the CDC does not recommend taking both of these medications on an on-going basis. If the medication is prescribed b another physician we strongly discourage this practice. Should the patient continue to take benzodiazepines and opiates together despite the warning it is at their own risk. During the patient's visit today, we discussed their chronic pain, including the onset, duration, aggravating and relieving factors, nature of the pain, and their pain scale. We attempted to identify how the pain affected the patient's daily activities, mobility, mood, sleep, and relationships. We discussed both the long and short-term goals for pain management.We discussed the current medications including the dose, effectiveness, and potential side effects. Non-opioid therapies were considered, including NSAIDs and other adjuvant medications.We discussed the importance of exercise and recommended tailored exercises for the patient. We discussed physical therapy and potential referral to a physical therapist, if appropriate.We discussed the risks/benefits of alternative treatments such as acupuncture, care transition mgr, massage, and biofeedback.We discussed behavioral health and coping strategies. If applicable, we performed a PHQ-9 and JOSE GUADALUPE-7 with the patient. If the patient scored as having anxiety or depression, they were given education on the diagnosis. We discussed the importance of addressing any mental health concerns as mental health disorders are a common comorbidity of chronic pain. We discussed techniques to reduce stress and promote relaxation. If applicable, the patient was offered a referral to behavioral health.We discussed lifestyle modifications, including getting appropriate sleep, eating a healthy diet, and striving to control their weight. We discussed avoiding activities that exacerbate their pain.We discussed that we would reassess their pain scale and adjust their care plan as needed during future visits.Discussed all the risk, side effects, and drug interactions for [facility] use of narcotics. The patient understands and is aware regarding all the risk involved. Also discussed overdose prevention plan including Narcan. Chronic Opioid management - Patient continues to deny signs or symptoms of addiction, denies constipation. Continue medications as prescribed. 10/29/2024 Other Will continue all medication as previously prescribed, as patient reports effective. Narcotic prescription signed per Dr. Benitez. Patient denies any side effects, states regimen is helping. Discussed the [facility] risk (ie. Addiction, oversedation, respiratory depression, and even dealth by overdose) The patient has pathology and justification for chronic use of narcotics.Discussed the continuous churn buttermaker risk of being on opiate therapy, patient is aware and accepts the risk. The patient is not to drive or operate heavy equipment until knows how the medication will make them feel. Also discussed with the patient the new CDC guidelines regarding benzodiazepines and opiates. The fact that the CDC does not recommend taking both of these medications on an on-going basis. If the medication is prescribed b another physician we strongly discourage this practice. Should the patient continue to take benzodiazepines and opiates together despite the warning it is at their own risk. During the patient's visit today, we discussed their chronic pain, including the onset, duration, aggravating and relieving factors, nature of the pain, and their pain scale. We attempted to identify how the pain affected the patient's daily activities, mobility, mood, sleep, and relationships. We discussed both the long and short-term goals for pain management.We discussed the current medications including the dose, effectiveness, and potential side effects. Non-opioid therapies were considered, including NSAIDs and other adjuvant medications.We discussed the importance of exercise and recommended tailored exercises for the patient. We discussed physical therapy and potential referral to a physical therapist, if appropriate.We discussed the risks/benefits of alternative treatments such as acupuncture, care transition mgr, massage, and biofeedback.We discussed behavioral health and coping strategies. If applicable, we performed a PHQ-9 and JOSE GUADALUPE-7 with the patient. If the patient scored as having anxiety or depression, they were given education on the diagnosis. We discussed the importance of addressing any mental health concerns as mental health disorders are a common comorbidity of chronic pain. We discussed techniques to reduce stress and promote relaxation. If applicable, the patient was offered a referral to behavioral health.We discussed lifestyle modifications, including getting appropriate sleep, eating a healthy diet, and striving to control their weight. We discussed avoiding activities that exacerbate their pain.We discussed that we would reassess their pain scale and adjust their care plan as needed during future visits.Discussed all the risk, side effects, and drug interactions for [facility] use of narcotics. The patient understands and is aware regarding all the risk involved. Also discussed overdose prevention plan including Narcan. Chronic Opioid management - Patient continues to deny signs or symptoms of addiction, denies constipation. Continue medications as prescribed. 11/26/2024 Other Will continue all medication as previously prescribed, as patient reports effective. Narcotic prescription signed per Dr. Benitez. Patient denies any side effects, states regimen is helping. Discussed the continuous churn buttermaker risk (ie. Addiction, oversedation, respiratory depression, and even dealth by overdose) The patient has pathology and justification for chronic use of narcotics.Discussed the continuous churn buttermaker risk of being on opiate therapy, patient is aware and accepts the risk. The patient is not to drive or operate heavy equipment until knows how the medication will make them feel. Also discussed with the patient the new CDC guidelines regarding benzodiazepines and opiates. The fact that the CDC does not recommend taking both of these medications on an on-going basis. If the medication is prescribed b another physician we strongly discourage this practice. Should the patient continue to take benzodiazepines and opiates together despite the warning it is at their own risk. During the patient's visit today, we discussed their chronic pain, including the onset, duration, aggravating and relieving factors, nature of the pain, and their pain scale. We attempted to identify how the pain affected the patient's daily activities, mobility, mood, sleep, and relationships. We discussed both the long and short-term goals for pain management.We discussed the current medications including the dose, effectiveness, and potential side effects. Non-opioid therapies were considered, including NSAIDs and other adjuvant medications.We discussed the importance of exercise and recommended tailored exercises for the patient. We discussed physical therapy and potential referral to a physical therapist, if appropriate.We discussed the risks/benefits of alternative treatments such as acupuncture, care transition mgr, massage, and biofeedback.We discussed behavioral health and coping strategies. If applicable, we performed a PHQ-9 and JOSE GUADALUPE-7 with the patient. If the patient scored as having anxiety or depression, they were given education on the diagnosis. We discussed the importance of addressing any mental health concerns as mental health disorders are a common comorbidity of chronic pain. We discussed techniques to reduce stress and promote relaxation. If applicable, the patient was offered a referral to behavioral health.We discussed lifestyle modifications, including getting appropriate sleep, eating a healthy diet, and striving to control their weight. We discussed avoiding activities that exacerbate their pain.We discussed that we would reassess their pain scale and adjust their care plan as needed during future visits.Discussed all the risk, side effects, and drug interactions for [facility] use of narcotics. The patient understands and is aware regarding all the risk involved. Also discussed overdose prevention plan including Narcan. Chronic Opioid management - Patient continues to deny signs or symptoms of addiction, denies constipation. Continue medications as prescribed. 12/24/2024 Other Will continue all medication as previously prescribed, as patient reports effective. Narcotic prescription signed per Dr. Benitez. Patient denies any side effects, states regimen is helping. Discussed the continuous churn buttermaker risk (ie. Addiction, oversedation, respiratory depression, and even dealth by overdose) The patient has pathology and justification for chronic use of narcotics.Discussed the [facility] risk of being on opiate therapy, patient is aware and accepts the risk. The patient is not to drive or operate heavy equipment until knows how the medication will make them feel. Also discussed with the patient the new CDC guidelines regarding benzodiazepines and opiates. The fact that the CDC does not recommend taking both of these medications on an on-going basis. If the medication is prescribed b another physician we strongly discourage this practice. Should the patient continue to take benzodiazepines and opiates together despite the warning it is at their own risk. During the patient's visit today, we discussed their chronic pain, including the onset, duration, aggravating and relieving factors, nature of the pain, and their pain scale. We attempted to identify how the pain affected the patient's daily activities, mobility, mood, sleep, and relationships. We discussed both the long and short-term goals for pain management.We discussed the current medications including the dose, effectiveness, and potential side effects. Non-opioid therapies were considered, including NSAIDs and other adjuvant medications.We discussed the importance of exercise and recommended tailored exercises for the patient. We discussed physical therapy and potential referral to a physical therapist, if appropriate.We discussed the risks/benefits of alternative treatments such as acupuncture, care transition mgr, massage, and biofeedback.We discussed behavioral health and coping strategies. If applicable, we performed a PHQ-9 and JOSE GUADALUPE-7 with the patient. If the patient scored as having anxiety or depression, they were given education on the diagnosis. We discussed the importance of addressing any mental health concerns as mental health disorders are a common comorbidity of chronic pain. We discussed techniques to reduce stress and promote relaxation. If applicable, the patient was offered a referral to behavioral health.We discussed lifestyle modifications, including getting appropriate sleep, eating a healthy diet, and striving to control their weight. We discussed avoiding activities that exacerbate their pain.We discussed that we would reassess their pain scale and adjust their care plan as needed during future visits.Discussed all the risk, side effects, and drug interactions for continuous churn buttermaker use of narcotics. The patient understands and is aware regarding all the risk involved. Also discussed overdose prevention plan including Narcan. Chronic Opioid management - Patient continues to deny signs or symptoms of addiction, denies constipation. Continue medications as prescribed. The patient is engaged in a longitudinal care relationship for the ongoing management of complex chronic conditions, including Chronic Pain Syndrome and long-term opioid analgesic use, along with other chronic pain conditions outlined in the assessment. The treatment plan involves continuous monitoring that includes random urine drug screens, routine imaging, coordination of care, and a multidisciplinary approach, which has been discussed with the patient and will be followed accordingly. 01/21/2025 Other Will continue all medication as previously prescribed, as patient reports effective. Narcotic prescription signed per Dr. Benitez. Patient denies any side effects, states regimen is helping. Discussed the continuous churn buttermaker risk (ie. Addiction, oversedation, respiratory depression, and even dealth by overdose) The patient has pathology and justification for chronic use of narcotics.Discussed the continuous churn buttermaker risk of being on opiate therapy, patient is aware and accepts the risk. The patient is not to drive or operate heavy equipment until knows how the medication will make them feel. Also discussed with the patient the new CDC guidelines regarding benzodiazepines and opiates. The fact that the CDC does not recommend taking both of these medications on an on-going basis. If the medication is prescribed b another physician we strongly discourage this practice. Should the patient continue to take benzodiazepines and opiates together despite the warning it is at their own risk. During the patient's visit today, we discussed their chronic pain, including the onset, duration, aggravating and relieving factors, nature of the pain, and their pain scale. We attempted to identify how the pain affected the patient's daily activities, mobility, mood, sleep, and relationships. We discussed both the long and short-term goals for pain management.We discussed the current medications including the dose, effectiveness, and potential side effects. Non-opioid therapies were considered, including NSAIDs and other adjuvant medications.We discussed the importance of exercise and recommended tailored exercises for the patient. We discussed physical therapy and potential referral to a physical therapist, if appropriate.We discussed the risks/benefits of alternative treatments such as acupuncture, care transition mgr, massage, and biofeedback.We discussed behavioral health and coping strategies. If applicable, we performed a PHQ-9 and JOSE GUADALUPE-7 with the patient. If the patient scored as having anxiety or depression, they were given education on the diagnosis. We discussed the importance of addressing any mental health concerns as mental health disorders are a common comorbidity of chronic pain. We discussed techniques to reduce stress and promote relaxation. If applicable, the patient was offered a referral to behavioral health.We discussed lifestyle modifications, including getting appropriate sleep, eating a healthy diet, and striving to control their weight. We discussed avoiding activities that exacerbate their pain.We discussed that we would reassess their pain scale and adjust their care plan as needed during future visits.Discussed all the risk, side effects, and drug interactions for continuous churn buttermaker use of narcotics. The patient understands and is aware regarding all the risk involved. Also discussed overdose prevention plan including Narcan. Chronic Opioid management - Patient continues to deny signs or symptoms of addiction, denies constipation. Continue medications as prescribed. The patient is engaged in a longitudinal care relationship for the ongoing management of complex chronic conditions, including Chronic Pain Syndrome and long-term opioid analgesic use, along with other chronic pain conditions outlined in the assessment. The treatment plan involves continuous monitoring that includes random urine drug screens, routine imaging, coordination of care, and a multidisciplinary approach, which has been discussed with the patient and will be followed accordingly. 02/25/2025 Other The patient is engaged in a longitudinal care relationship for the ongoing management of complex chronic conditions, including Chronic Pain Syndrome and long-term opioid analgesic use, along with other chronic pain conditions outlined in the assessment. The treatment plan involves continuous monitoring that includes random urine drug screens, routine imaging, coordination of care, and a multidisciplinary approach, which has been discussed with the patient and will be followed accordingly. During the patient's visit today, we discussed their chronic pain, including the onset, duration, aggravating and relieving factors, nature of the pain, and their pain scale. We attempted to identify how the pain affected the patient's daily activities, mobility, mood, sleep, and relationships. We discussed both the long and short-term goals for pain management. We discussed the current medications including the dose, effectiveness, and potential side effects. Non-opioid therapies were considered, including NSAIDs and other adjuvant medications. We discussed the importance of exercise and recommended tailored exercises for the patient. We discussed physical therapy and potential referral to a physical therapist, if appropriate. We discussed the risks/benefits of alternative treatments such as acupuncture, care transition mgr, massage, and biofeedback. We discussed behavioral health and coping strategies. If applicable, we performed a PHQ-9 and JOSE GUADALUPE-7 with the patient. If the patient scored as having anxiety or depression, they were given education on the diagnosis. We discussed the importance of addressing any mental health concerns as mental health disorders are a common comorbidity of chronic pain. We discussed techniques to reduce stress and promote relaxation. If applicable, the patient was offered a referral to behavioral health. We discussed lifestyle modifications, including getting appropriate sleep, eating a healthy diet, and striving to control their weight. We discussed avoiding activities that exacerbate their pain. We discussed that we would reassess their pain scale and adjust their care plan as needed during future visits. 03/25/2025 Other The patient is engaged in a longitudinal care relationship for the ongoing management of complex chronic conditions, including Chronic Pain Syndrome and long-term opioid analgesic use, along with other chronic pain conditions outlined in the assessment. The treatment plan involves continuous monitoring that includes random urine drug screens, routine imaging, coordination of care, and a multidisciplinary approach, which has been discussed with the patient and will be followed accordingly. During the patient's visit today, we discussed their chronic pain, including the onset, duration, aggravating and relieving factors, nature of the pain, and their pain scale. We attempted to identify how the pain affected the patient's daily activities, mobility, mood, sleep, and relationships. We discussed both the long and short-term goals for pain management. We discussed the current medications including the dose, effectiveness, and potential side effects. Non-opioid therapies were considered, including NSAIDs and other adjuvant medications. We discussed the importance of exercise and recommended tailored exercises for the patient. We discussed physical therapy and potential referral to a physical therapist, if appropriate. We discussed the risks/benefits of alternative treatments such as acupuncture, care transition mgr, massage, and biofeedback. We discussed behavioral health and coping strategies. If applicable, we performed a PHQ-9 and JOSE GUADALUPE-7 with the patient. If the patient scored as having anxiety or depression, they were given education on the diagnosis. We discussed the importance of addressing any mental health concerns as mental health disorders are a common comorbidity of chronic pain. We discussed techniques to reduce stress and promote relaxation. If applicable, the patient was offered a referral to behavioral health. We discussed lifestyle modifications, including getting appropriate sleep, eating a healthy diet, and striving to control their weight. We discussed avoiding activities that exacerbate their pain. We discussed that we would reassess their pain scale and adjust their care plan as needed during future visits. 04/22/2025 Other The patient is engaged in a longitudinal care relationship for the ongoing management of complex chronic conditions, including Chronic Pain Syndrome and long-term opioid analgesic use, along with other chronic pain conditions outlined in the assessment. The treatment plan involves continuous monitoring that includes random urine drug screens, routine imaging, coordination of care, and a multidisciplinary approach, which has been discussed with the patient and will be followed accordingly. During the patient's visit today, we discussed their chronic pain, including the onset, duration, aggravating and relieving factors, nature of the pain, and their pain scale. We attempted to identify how the pain affected the patient's daily activities, mobility, mood, sleep, and relationships. We discussed both the long and short-term goals for pain management. We discussed the current medications including the dose, effectiveness, and potential side effects. Non-opioid therapies were considered, including NSAIDs and other adjuvant medications. We discussed the importance of exercise and recommended tailored exercises for the patient. We discussed physical therapy and potential referral to a physical therapist, if appropriate. We discussed the risks/benefits of alternative treatments such as acupuncture, care transition mgr, massage, and biofeedback. We discussed behavioral health and coping strategies. If applicable, we performed a PHQ-9 and JOSE GUADALUPE-7 with the patient. If the patient scored as having anxiety or depression, they were given education on the diagnosis. We discussed the importance of addressing any mental health concerns as mental health disorders are a common comorbidity of chronic pain. We discussed techniques to reduce stress and promote relaxation. If applicable, the patient was offered a referral to behavioral health. We discussed lifestyle modifications, including getting appropriate sleep, eating a healthy diet, and striving to control their weight. We discussed avoiding activities that exacerbate their pain. We discussed that we would reassess their pain scale and adjust their care plan as needed during future visits. Plan Of Treatment Pending Test Test Name Order Date *X-RAY LUMBAR SPINE 2-3 VIEWS 46057 06/02 Urine Drug Screen 08/06/2024 Urine Drug Screen 06/13/2024 Insurance Providers Payer Name Payer Address Payer Phone Subscriber Number Group Number Insured Name Patient Relationship to Insured Coverage Start Date Coverage End Date [facility] Complete [address] [place] [address] [id number] Iesha Avitia Self - patient is the insured 31/202 5 [employer] [place] [address] [place], [place] [id number] Iesha Fernandez Self - patient is the insured Medical (General) History Medical History History ICD Code type II diabetes hypertension CHRONIC KIDNEY DISEASE
--- OUTSIDE RECORDS SUMMARY | 2025-06-02 16:10 | XMS_ITS | Clinical Summary ---
Author Organization [facility] Address [address] [facility] Attn: Epic Prelude ADT [place] [address] Care Team Providers Care Shelf Stocker Name Role Phone Kwaku Taylor DO Primary Care Provider Allergies Active Allergy Reactions Criticality Noted Date Comments Penicillin G Rash Low 03/26/2008 Tramadol Nausea and Vomiting Low 03/26/2008 Active Problems Problem Noted Date Diagnosed Date Achilles bursitis or tendinitis 10/09/2008 Heel spur 10/09/2008 Other hammer toe (acquired) 04/01/2008 Type II or unspecified type diabetes mellitus without mention of complication, not stated as uncontrolled 04/01/2008 Hallux valgus (acquired) 04/01/2008 Social History Tobacco Use Types Packs/Day Years Used Date Smoking Tobacco: Former Cigarettes Q uit: 05/04/1991 Smokeless Tobacco: Never Alcohol Use Standard Drinks/Week Comments No 0 (1 standard drink = 0.6 oz pur e alcohol) Comments Unknown Sex and Gender Information Value Date Recorded Sex Assigned at Not on file 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 Gender Identity Not on file Sexual Orientation Not on file Plan of Treatment Health Maintenance Due Date Last Done Comments DIABETES ANNUAL FOOT EXAM 01/25/1956 DIABETES ANNUAL RETINAL EXAM 01/25/1956 DIABETES HBA1C Q 6 MONTHS 01/25/1956 DIABETES MICROALBUMIN ANNUAL SCREEN 01/25/1956 LDL CHOLESTEROL ANNUAL 01/25/1956 DTAP/TDAP/TD VACCINES (1 - Tdap) 1957 PNEUMOCOCCAL VACCINE 50+ YEARS (1 of 2 - PCV) 01/24/19 57 ZOSTER VACCINE (1 of 2) 01/25/1988 OSTEOPOROSIS SCREENING 2003 RSV VACCINE (60+ or ) (1 - 1-dose 75+ series) 2013 INFLUENZA VACCINE (#1) 2025 Insurance [facility] [id number] MEDICAID [place] [facility] [place] [address] Care Teams Shelf Stocker Relationship Specialty Start Date End Date Kwaku Taylor DO [address] [place] [id number] PCP - General 04/01/08
--- OUTSIDE RECORDS SUMMARY | 2025-06-02 16:10 | XMS_ITS | Clinical Summary ---
Author Organization [facility] Address [address] [place] [address] Phone Care Team Providers Care Sr. Vendor Management Associate Name Role Phone Kwaku Taylor Primary Care Provider Allergies Active Allergy Reactions Criticality Noted Date Comments Penicillin G Rash Low 03/26/2008 Tramadol Nausea and Vomiting Low 03/26/2008 Medications aspirin (ERIN) 81 mg Oral Tab Take 81 mg by mouth daily. Active FOSAMAX PO Active GLIMEPIRIDE PO Activ e GLUCOPHAGE PO Active LEVOTHYROXINE PO Act jimbo LISINOPRIL PO Active SIMVASTATIN PO Activ e TOPROL XL PO Active BIOTIN PO Active CALCIUM 500+D PO Act jimbo MULTI-VITAMIN PO Act jimbo TYLENOL ARTHRITIS PO Active trazodone (DESYREL) 50 mg Oral Tab Take 50 mg by mouth daily at bedtime. Active ACIPHEX 20 mg Oral TbEC Take 20 mg by mouth daily. Active ESOMEPRAZOLE MAG TRIHYDRATE (NEXIUM ORAL) Take by mouth. Active METFORMIN HCL (METFORMIN ORAL) Take by mouth. Active darifenacin (ENABLEX) 7.5 mg Oral Tb24 Take 7.5 mg by mouth daily. Active POLYETHYLENE GLYCOL 3350 (MIRALAX ORAL) Take by mouth. Active DOCUSATE SODIUM (COLACE ORAL) Take by mouth. Active ACETAMINOPHEN/DP -HYDRAM HCL (TYLENOL PM ORAL) Take by mouth. Active Active Problems Problem Noted Date Diagnosed Date Achilles bursitis or tendinitis 10/09/2008 Heel spur 10/09/2008 Hallux valgus (acquired) 04/01/2008 Other hammer toe (acquired) 04/01/2008 Type II or unspecified type diabetes mellitus without mention of complication, not stated as uncontrolled 04/01/2008 Social History Tobacco Use Types Packs/Day Years Used Date Smoking Tobacco: Former Cigarettes Q uit: 05/04/1991 Smokeless Tobacco: Never Alcohol Use Standard Drinks/Week Comments No 0 (1 standard drink = 0.6 oz pur e alcohol) Comments Unknown Sex and Gender Information Value Date Recorded Sex Assigned at Not on file 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 Gender Identity Not on file Sexual Orientation Not on file Last Filed Vital Signs Vital Sign Reading Time Taken Comments Blood Pressure 166/70 02/08/2011 10:39 AM CDT Pulse 58 02/08/2011 10:39 AM CDT Temperature - - Respiratory Rate - - Oxygen Saturation - - Inhaled Oxygen Concentration - - Weight 108 kg (238 lb) 02/08/2011 10:39 AM CDT Height 162.6 cm (5' 4 ) 02/08/2011 10:39 AM CDT Body Mass Index 40.85 02/08/2011 10:39 AM CDT Plan of Treatment Health Maintenance Due Date Last Done Comments DIABETES ANNUAL FOOT EXAM 01/25/1958 DIABETES ANNUAL RETINAL EXAM 01/25/1956 DIABETES HBA1C Q 6 MONTHS 01/25/1956 DIABETES MICROALBUMIN ANNUAL SCREEN 01/25/1956 DTAP/TDAP/TD VACCINES (1 - Tdap) 1957 PNEUMOCOCCAL VACCINE 50+ YEA RS (1 of 2 - PCV) 1957 ZOSTER VACCINE (1 of 2) 01/25/1988 OSTEOPOROSIS SCREENING 2003 LDL CHOLESTEROL ANNUAL 09/09/2003 09/09/2002, 2001 RSV VACCINE (60+ or ) (1 - 1-dose 75+ series) 2013 INFLUENZA VACCINE (#1) 2025 Insurance MEDICARE PART A AND B [employer] [place] [id number] MEDICAID [place] Advance Directives For more information, please contact: [phone] Documents on File Type Date Recorded Patient Macaroni Maker Expl anation Advance Directive POA 02/08/2011 Advanc e Directive POA Care Teams Sr. Vendor Management Associate Relationship Specialty Start Date End Date Kwaku Taylor DO PCP - General 04/01/08
--- OUTSIDE RECORDS SUMMARY | 2025-06-02 16:10 | XMS_ITS | Encounter Summary ---
Author Organization [employer] [facility] Address [address] [place] [address] Care Team Providers Care Director Drug Safety Name Role Phone Kwaku Taylor DO Primary Care Provider [phone] Encounter Details Date Type Department Care Team (Latest Contact Info) Description 08/09/2002 Outpatient Historical [facility] Hieu Smith MD [address] [place] [address] HYPERLIPIDEMIA NEC/NOS (Primary Dx); RENAL & URETERAL DIS NOS Social History Tobacco Use Types Packs/Day Years Used Date Smoking Tobacco: Never Assessed Comments Unknown Sex and Gender Information Value Date Recorded Sex Assigned at Not on file 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
--- OUTSIDE RECORDS SUMMARY | 2025-06-02 16:10 | XMS_ITS | Patient Health Record ---
Author Organization [facility] Address [address] [place] [address] Care Team Providers Care Tea And Spice Supervisor Name Role Phone Bahman Berumen Primary Care Provider David Philippe Unavailable [phone] Sarah Gallagher Unavailable [phone] Allergies Allergen (clinical drug ingredient) Drug/Non Drug Allergy documented on EMR Reaction Allergy Type Onset Date Status Substance with penicillin structure and antibacterial mechanism of action (substance) Penicillins Unknown Drug Allergy Active tramadol Tramadol Unknown Drug Allergy Active Reason For Referral No Information Medications Medication SIG (Take, Route, Frequency, Duration) Notes Start Date End Date Status MAGnesium-Oxide 400 (240 Mg) MG TAKE 1 TABLET BY MOUTH ONCE DAILY Oral; Duration: 90 Days Active HYDROcodone-Acetaminophen 7.5-325 MG Oral; Duration: 28 Days Acti ve OneTouch Delica Plus [id number] - USE 1 UNIT TO CHECK GLUCOSE THREE TIMES DAILY; Duration: 34 Days Active Voltaren 1 % as directed Externally Active Solifenacin Succinate 5 MG Oral; Duration: 90 Days Active Fluticasone Propionate 50 MCG/ACT Nasal; Duration: 60 Days Act jimbo Furosemide 20 MG TAKE 1 TABLET BY EMILY TH ONCE DAILY Oral; Duration: 90 Days Active amLODIPine Besylate 10 MG TAKE 1 TABLET BY MOUTH ONCE DAILY DIRECTED Oral; Duration: 90 Days Active Metoprolol Succinate ER 50 MG Oral; Duration: 90 Days Acti ve Vitamin D3 125 MCG (5000 UT) 1 tablet Or ally Once a day Active Triamcinolone Acetonide 0.1 % APPLY CREAM EXTERNALLY TO AFFECTED AREA TWICE DAILY External; Duration: 30 Days Active FeroSul 325 (65 Fe) MG TAKE 2 TABLETS BY MOUTH ONCE DAILY Oral; Duration: 90 Days Active Pravastatin Sodium 10 MG TAKE 1 TABLET B Y MOUTH ONCE DAILY Oral; Duration: 30 Days Active BD Swab Single Use Regular - USE 1 SWAB EXTERNALLY TWICE DAILY; Duration: 50 Days Active OneTouch Verio - In Vitro; Duration: 50 Days Active Levothyroxine Sodium 75 MCG TAKE 1 TABLE T BY MOUTH ONCE DAILY Oral; Duration: 90 Days Active Belsomra 10 MG Oral; Duration: 30 Days Active oxyBUTYnin Chloride ER 5 MG Oral; Duration: 60 Days Active Jardiance 10 MG TAKE 1 TABLET BY EMILY TH ONCE DAILY Oral; Duration: 90 Days Active Naloxone HCl 4 MG/0.1ML CALL 911. SPR CO NTENTS OF ONE SPRAYER (0.1ML) INTO ONE NOSTRIL. 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) 04/12/20 Active confirmed Problem Obesity (700996026) Obesity, unspecified (E66.9) 04/12/20 Active confirmed Problem Hyperlipidemia (49494628) Hyperlipidemia, unspecified (E78.5) 04/12/20 23 Active confirmed Problem Essential hypertension (46117044) Essential (primary) hypertension (I10) 04/12/20 23 Active confirmed Problem Chronic kidney disease stage 4 (365740274) Chronic kidney disease, stage 4 (severe) (N18.4) 07/06/20 22 Active confirmed Problem Counseling requested (503023107) Persons encountering health services in other specified circumstances (Z76.89) 04/12/20 23 Active confirmed Problem Chronic kidney disease stage 3B (disorder) (534354039) Chronic kidney disease, stage 3b (N18.32) 04/12/20 23 Active confirmed Vital Signs Heart Rate 48 /min 01/28/2025 Temperature 97.9 degrees Fahrenheit 01/28/2025 Respiratory Rate 18 /min 07/17/2024 Height-cm 162.56 cm 01/28/2025 Oximetry 95 % 01/28/2025 Blood pressure diastolic 70 mm Hg 01/28/2025 Weight-kg 82.55 kg 01/28/2025 Height 64.00 in 01/28/2025 Blood pressure systolic 142 mm Hg 01/28/2025 Weight 182 lbs 01/28/2025 BMI 31.24 kg/m2 01/28/2025 Encounters Encounter Location Date Provider Diagnosis [facility] [address] [place] [address] 07/17/2024 Sarah Gallagher Type 2 diabetes quinn itus with diabetic nephropathy E11.21 ; Chronic kidney disease, stage 4 (severe) N18.4 ; Obesity, unspecified E66.9 ; Hyperlipidemia, unspecified E78.5 and Essential (primary) hypertension I10 [facility] [address] [place] [address] 10/23/2024 Sarah Gallagher Type 2 diabetes quinn itus with diabetic nephropathy E11.21 ; Chronic kidney disease, stage 4 (severe) N18.4 ; Obesity, unspecified E66.9 ; Hyperlipidemia, unspecified E78.5 and Essential (primary) hypertension I10 [facility] [address] [place] [address] 01/28/2025 Sarah Gallagher Type 2 diabetes quinn itus with diabetic nephropathy E11.21 ; Chronic kidney disease, stage 4 (severe) N18.4 ; Obesity, unspecified E66.9 ; Hyperlipidemia, unspecified E78.5 and Essential (primary) hypertension I10 Assessments Encounter Date Diagnosis (ICD Code) Assessment Notes Treatment Notes Treatment Clinical Notes Section Notes 07/17/2024 Type 2 diabetes mellitus with diabetic nephropathy (ICD-10 - E11.21) Most recent A1c is 6.3. Currently on Jardiance which will be continued. Treatment for diabetic kidney disease includes controlling blood pressure and blood sugar levels, reducing dietary protein intake, avoiding medications that may damage the kidneys, treating urinary tract infections and exercise and weight loss 10/23/2024 Type 2 diabetes mellitus with diabetic nephropathy (ICD-10 - E11.21) Most recent A1c is 6.3. Currently on Jardiance which will be continued. Treatment for diabetic kidney disease includes controlling blood pressure and blood sugar levels, reducing dietary protein intake, avoiding medications that may damage the kidneys, treating urinary tract infections and exercise and weight loss 01/28/2025 Type 2 diabetes mellitus with diabetic nephropathy (ICD-10 - E11.21) Most recent A1c is 6.3. Currently on Jardiance which will be continued. Treatment for diabetic kidney disease includes controlling blood pressure and blood sugar levels, reducing dietary protein intake, avoiding medications that may damage the kidneys, treating urinary tract infections and exercise and weight loss 10/23/2024 Chronic kidney disease, stage 4 (severe) (ICD-10 - N18.4) Stabe with creatinine 1.72 and eGFR 29 mL/min, which is at baseline. The patient is on SGLT2i and ARB, which can be continued. Asked the patient to increase her water intake to 72-96 ounces daily. The patient was educated on natural disease progression. Discussed the importance of blood pressure management and the need to reduce cardiovascular disease risks, including advice on smoking cessation, exercise, and diet. Discussed the need to minimize nephrotoxic drugs, particularly NSAIDs. 01/28/2025 Chronic kidney disease, stage 4 (severe) (ICD-10 - N18.4) Stabe with creatinine 1.72 and eGFR 29 mL/min, which is at baseline. The patient is on SGLT2i and ARB, which can be continued. Asked the patient to increase her water intake to 72-96 ounces daily. The patient was educated on natural disease progression. Discussed the importance of blood pressure management and the need to reduce cardiovascular disease risks, including advice on smoking cessation, exercise, and diet. Discussed the need to minimize nephrotoxic drugs, particularly NSAIDs. 07/17/2024 Chronic kidney disease, stage 4 (severe) (ICD-10 - N18.4) Stabe with creatinine 1.93 and eGFR 25 mL/min which is at baseline. Patient is on SGLT2i and ARB which can be continued. Asked patient to increase her water intake to 72-96 ounces daily. Patient educated on natural disease progression. Discussed importance of blood pressure management and need to reduce cardiovascular disease risks, including advice on smoking cessation, exercise and diet. Discussed need to minimize nephrotoxic drugs, particularly NSAIDs. 10/23/2024 Obesity, unspecified (ICD-10 - E66.9) Recent 15 pound weight loss with dieting. 07/17/2024 Obesity, unspecified (ICD-10 - E66.9) Recent 15 pound weight loss with dieting. 01/28/2025 Obesity, unspecified (ICD-10 - E66.9) Recent 15 pound weight loss with dieting. 01/28/2025 Hyperlipidemia, unspecified (ICD-10 - E78.5) Continue statin 07/17/2024 Hyperlipidemia, unspecified (ICD-10 - E78.5) Continue statin 10/23/2024 Hyperlipidemia, unspecified (ICD-10 - E78.5) Continue statin 10/23/2024 Essential (primary) hypertension (ICD-10 - I10) Patient's blood pressures are well controlled. Recommend continue with same medication(s). She reports at home that her SBP is 140-150. Asked patient to bring a log of her blood pressures to next appt. Advised to follow low salt diet. 07/17/2024 Essential (primary) hypertension (ICD-10 - I10) Patient's blood pressures are well controlled. Recommend continue with same medication(s). She reports at home that her SBP is 140-150. Asked patient to bring a log of her blood pressures to next appt. Advised to follow low salt diet. 01/28/2025 Essential (primary) hypertension (ICD-10 - I10) Patient's blood pressures are well controlled. Recommend continue with same medication(s). She reports at home that her SBP is 140-150. Asked patient to bring a log of her blood pressures to next appt. Advised to follow low salt diet. Plan Of Treatment No Information Insurance Providers Payer Name Payer Address Payer Phone Subscriber Number Group Number Insured Name Patient Relationship to Insured Coverage Start Date Coverage End Date [facility] [address] [address] [place], [place] [address] [id number] VICTORINA WEEKS Self - patient is the insured Medicaid-Tx [address] [place], [place] [id number] VICTORINA WEEKS Self - patient is the insured Medical (General) History Medical History History ICD Code Problems: Anemia Chronic kidney disease stage 3 Chronic kidney disease stage 4 Degeneration of intervertebral disc Depressive disorder Diabetes mellitus Essential hypertension Hip pain Hyperlipidemia Hypertensive disorder Incontinence Obesity Obstructive sleep apnea of adult Primary stress incontinence Type 2 diabetes mellitus Surgical History Surgery Date(Month/Year) appendectomy cholecystectomy tonsillectomy and adenoidectomy left breast back fusion right hip replace left knee replace
[2025-06-02 16:15] VITALS: BP 137/58; PULSE 68; RESP 16; TEMP 36.1; O2SAT 94; BMI 33.1
--- NOTE | 2025-06-02 16:32 | W.ED.EXTPRO ---
HPI - Extremity Problem General: Chief complaint: Extremity Problem,Nontraumatic Stated complaint: legs swelling Time Seen by Provider: 06/02/25 15:56 History of Present Illness: 85-year-old female presents with a chief complaint of worsening lower extremity swelling in the past 3 weeks. Lower extremity swelling is bilateral and is associated with pain and redness of the shins. Patient states that she moved and has had increased activity. She states that usually, she has worsening leg swelling when it is warm and she is more active. Patient states that since the swelling started, it has improved however she continues to have swelling and pain and this is what brought her to the emergency department. Patient does take 20 mg of Lasix daily for leg and ankle swelling. Patient also takes amlodipine and losartan and metoprolol for high blood pressure. Of note, she reports stage 4 kidney disease (may need increased dose of lasix). Patient has not had a fever, denies chest pain, shortness of breath, orthopnea, exertional shortness of breath, abdominal pain, nausea, vomiting, difficulty with urinating, dysuria, hematuria, change in bowel habits. To patient's knowledge, she is not treated for heart failure. The patient has a follow-up w/Dr. Jazmin Juares on 06/10. Related Data Home Medications ?Medication ?Instructions ?Recorded ?Confirmed amlodipine 5 mg tablet 5 mg PO DAILY 05/13/20 09/06/21 aspirin 81 mg tablet,delayed 81 mg PO DAILY 05/13/20 09/06/21 release (Adult Low Dose Aspirin) atorvastatin 40 mg tablet 40 mg PO DAILY 05/13/20 09/06/21 diphenhydramine 25 1 tab PO Q6H PRN 05/13/20 09/06/21 mg-acetaminophen 500 mg tablet (Tylenol PM Extra Strength) esomeprazole magnesium 40 mg 40 mg PO DAILY 05/13/20 09/06/21 capsule,delayed release ferrous sulfate 325 mg (65 mg 325 mg PO DAILY 05/13/20 09/06/21 iron) tablet (Feosol) levothyroxine 75 mcg capsule 75 mcg PO DAILY 05/13/20 09/06/21 losartan 50 mg tablet 50 mg PO DAILY 05/13/20 09/06/21 mecobalamin (vitamin B12) 1,000 2,500 mcg PO DAILY 05/13/20 09/06/21 mcg chewable tablet (B12 Active) metoprolol tartrate 50 mg tablet 50 mg PO DAILY 05/13/20 09/06/21 multivitamin 1 tab PO DAILY 05/13/20 09/06/21 polyethylene glycol 3350 17 gram 17 gm PO .prn 05/13/20 09/06/21 oral powder packet (Miralax) ketoconazole 2 % shampoo 1 applic topical Q14D 01/26/21 09/06/21 furosemide 20 mg tablet 10 mg PO QAM 09/06/21 09/06/21 Allergies Allergy/AdvReac Type Severity Reaction Status Date / Time Penicillins Allergy ADR-Itching Verified 09/06/21 13:35 tramadol AdvReac ADR-Nausea Verified 09/06/21 13:35 PFSH ED PFSH: Medical History Callus of foot Hyperlipemia Hypertension Diabetes mellitus Hypothyroidism Surgical History H/O total hip arthroplasty History of lumbosacral spine surgery History of total knee arthroplasty History of breast lump removal History of hysterectomy Hx of cholecystectomy History of appendectomy History of tonsillectomy Hx of adenoidectomy Family History Mother Cancer Father Cancer Grandmother Cancer Stroke Grandfather Cancer Social History Smoking and tobacco/nicotine status: former use of tobacco/nicotine Alcohol intake: never Physical Exam Narrative: EXAM NARRATIVE: Vital signs were reviewed. Patient is alert and oriented. Patient is breathing comfortably, no increased WOB or accessory muscle use. SpO2 is above 95% on RA. Patient has clear lung sounds bilaterally, no rhonchi or wheezing. Normal heart sounds. No hypotension or tachycardia. Patient is moving all extremities, no deformity or gross injury. Patient has bilateral lower extremity pitting edema with venous stasis dermatitis. Course Vital Signs: Vital signs: Vital Signs Temperature 97 F L 06/02/25 16:15 Pulse Rate 56 L 06/02/25 18:28 Respiratory Rate 16 06/02/25 16:15 Blood Pressure 144/73 06/02/25 18:28 Pulse Oximetry 99 06/02/25 18:28 Oxygen Delivery Me thod Room Air 06/02/25 18:28 MDM - Extremity (Nontraumatic) Medical Decision Making 85-year-old female with a chief complaint of lower extremity swelling and edema. Differential diagnosis includes compression limited to, lower extremity edema, venous stasis dermatitis, cellulitis, DVT/PE, CHF, problems with kidney, liver, medication side effect such as adverse effect of amlodipine, other. On exam, patient is hemodynamically stable. She does have bilateral lower extremity pitting edema. She was evaluate CBC, BMP, BNP, troponin and UA. Patient has a normal white blood cell count which lessens my concern for infectious etiology in addition to the fact that she is afebrile. Clinical appearance is most consistent with venous stasis dermatitis. Patient has a normal white blood cell count patient has an elevated creatinine but she does have known stage IV kidney disease. Patient has an elevated BNP but does not require supplemental oxygen. Patient may benefit from evaluation by cardiac echo to assess cardiac function though I suspect it is elevated due to poor kidney function and her age. I suspect her swelling has worsened due to worsening kidney function. I will temporarily increase her lasix, advise her to follow up with her primary care doctor for further medical management. Due to abnormal heart function, obtained EKG which showed sinus tachycardia with a heart rate of 58, normal axis, mild prolongation of the QRS but otherwise normal QTc, no evidence of ST segment elevation or ischemic change. At this time, patient continues to deny chest pain, exertional chest pain, shortness of breath, lightheadedness orthopnea. Her SpO2 is 97% on room air. Patient was counseled to keep her appointment with her primary care physician. Patient was counseled on return precautions and advised to return if her condition worsens or new symptoms arise. Patient was discharged in a stable condition. Lab Data 06/02/25 16:45 06/02/25 16:45 Laboratory Results WBC 5.73 10^3/uL (3.29-11.43) 06/02/25 16:45 RBC 3.71 10^6/uL (3.85-5.65) L 06/02/25 16:45 Hgb 11.70 g/dL (11.27-16.99) 06/02/25 16:45 Hct 36.0 % (36-47) 06/02/25 16:45 MCV 97.0 fl (85-98) 06/02/25 16:45 MCH 31.5 pg (27-33) 06/02/25 16:45 MCHC 32.5 g/dL (30-55) 06/02/25 16:45 RDW 12.3 % (12.1-15.1) 06/02/25 16:45 Plt Count 198 10^3/cmm (157-399) 06/02/25 16:45 MPV 8.4 fL (7.4-10.4) 06/02/25 16:45 Neut % (Auto) 50.5 % 06/02/25 16:45 Lymph % (Auto) 37.5 % 06/02/25 16:45 Clayton % (Auto) 9.6 % 06/02/25 16:45 Eos % (Auto) 1.9 % 06/02/25 16:45 Baso % (Auto) 0.3 % 06/02/25 16:45 Neut # (Auto) 2.89 10^3/uL (1.8-7.7) 06/02/25 16:45 Lymph # (Auto) 2.2 10^3/uL (0.8-4.8) 06/02/25 16:45 Clayton # (Auto) 0.6 10^3/uL (0.2-0.9) 06/02/25 16:45 Eos # (Auto) 0.1 10^3/uL (0.0-0.8) 06/02/25 16:45 Baso # (Auto) 0.0 10^3/uL (0.0-0.1) 06/02/25 16:45 Nucleated RBC % (auto) 0 % 06/02/25 16:45 Nucleated RBCs # 0.0 /100WBC 06/02/25 16:45 Sodium 135 mmol/L (136-145) L 06/02/25 16:45 Potassium 4.6 mmol/L (3.5-5.1) 06/02/25 16:45 Chloride 99 mmol/L (98-107) 06/02/25 16:45 Carbon Dioxide 27 mmol/L (22-29) 06/02/25 16:45 Anion Gap 13.6 (5-19) 06/02/25 16:45 BUN 29 mg/dL (8-23) H 06/02/25 16:45 Creatinine 1.7 mg/dL (0.5-0.9) H 06/02/25 16:45 GFR Calculation Not Reportable 06/02/25 16:45 Glucose 135 mg/dL (65-115) H 06/02/25 16:45 Calculated Osmolality 288 mOsm/kg (285-295) 06/02/25 16:45 Calcium 9.2 mg/dL (8.5-10.5) 06/02/25 16:45 Total Bilirubin 0.2 mg/dL (0.15-1.2) 06/02/25 16:45 AST 18 U/L (0-32) 06/02/25 16:45 ALT 8 U/L (0-33) 06/02/25 16:45 Alkaline Phosphatase 92 U/L (35-105) 06/02/25 16:45 Troponin T Baseline 34 ng/L (0-10) H 06/02/25 16:45 NT-Pro-B Natriuret Pep 1091 pg/mL (0-450) H 06/02/25 16:45 Total Protein 5.7 g/dL (6.6-8.7) L 06/02/25 16:45 Albumin 3.6 g/dL (3.5-5.2) 06/02/25 16:45 Globulin 2.1 g/dL (1.3-4.6) 06/02/25 16:45 Urine Color Yellow (Yellow) 06/02/25 16:55 Urine Appearance Clear (CLEAR) 06/02/25 16:55 Urine pH 6.5 (5-7) 06/02/25 16:55 Ur Specific [place] 1.010 (1.005-1.030) 06/02/25 16:55 Urine Protein Negative (Negative) 06/02/25 16:55 Urine Glucose (UA) 2+ (Normal) H 06/02/25 16:55 Urine Ketones Negative (Negative) 06/02/25 16:55 Urine Blood Non-haemolysed trace (Negative) 06/02/25 16:55 Urine Nitrate Negative (Negative) 06/02/25 16:55 Urine Bilirubin Negative (Negative) 06/02/25 16:55 Urine Urobilinogen 0.2 mg/dL (Negative) 06/02/25 16:55 Ur Leukocyte Esterase Negative (Negative) 06/02/25 16:55 Urine RBC 6-10 /hpf (0-2) 06/02/25 16:55 Urine WBC 0-5 /hpf (0-5) 06/02/25 16:55 Ur Squamous Epith Cells 0-5 /hpf (0-5) 06/02/25 16:55 Amorphous Sediment Not Reportable 06/02/25 16:55 Urine Bacteria None seen /hpf (NONE) 06/02/25 16:55 Hyaline Casts 0.40 /lpf 06/02/25 16:55 No radiology studies performed this visit ED provider radiology interpretation(s): N/A Discharge Plan Discharge Patient Disposition: Home Clinical Impression: Bilateral edema of lower extremity, Acute venous stasis dermatitis, Elevated brain natriuretic peptide (BNP) level Chronic kidney disease Qualifiers: Chronic kidney disease stage: stage 4 (GFR 15-29) Qualified Code(s): N18.4 - Chronic kidney disease, stage 4 (severe) Condition: Stable Prescriptions: New furosemide [Lasix] 40 mg tablet 40 mg PO DAILY 7 Days Qty: 7 0RF No Action levothyroxine 75 mcg capsule 75 mcg PO DAILY esomeprazole magnesium 40 mg capsule,delayed release(DR/EC) 40 mg PO DAILY metoprolol tartrate 50 mg tablet 50 mg PO DAILY amlodipine 5 mg tablet 5 mg PO DAILY ferrous sulfate [Feosol] 325 mg (65 mg iron) tablet 325 mg PO DAILY losartan 50 mg tablet 50 mg PO DAILY B12 Active 1,000 mcg tablet,chewable 2,500 mcg PO DAILY multivitamin Tablet,Chewable 1 tab PO DAILY aspirin [Adult Low Dose Aspirin] 81 mg tablet,delayed release (DR/EC) 81 mg PO DAILY atorvastatin 40 mg tablet 40 mg PO DAILY diphenhydramine-acetaminophen [Tylenol PM Extra Strength] 25-500 mg tablet 1 tab PO Q6H PRN polyethylene glycol 3350 [Miralax] 17 gram powder in packet 17 gm PO .prn ketoconazole 2 % shampoo 1 applic topical Q14D furosemide 20 mg tablet 10 mg PO QAM Discharge Orders: Discharge ED (Routine); Ordered 06/02/25 Ordered By: Deena Quinonez Referrals: Jazmin Juares DO [Primary Care Provider, ORTHOPAEDIC TECHNOLOGIST] Patient Instructions: Opioid Safety, Pain Management, Patient Portal & José Luis Instructions Activity Restrictions/Additional Instructions: For the next 7 days, take an increased dose of furosemide, a diuretic, which will help with decreasing swelling. Continue to monitor your condition very closely at home. Specifically, continue to monitor for chest pain, shortness of breath with exertion, shortness of breath with lying down, worsening swelling. If your condition worsens or additional concerns arise, please return immediately to the emergency department for reassessment. Please follow-up with your doctor next week as scheduled. Talk to your doctor about amlodipine your medication amlodipine, which is a medication for high blood pressure that can also cause leg swelling. You may need to be started on a different medication. Additionally, talk to your doctor about ultrasound of your heart to evaluate heart function to ensure it has not worsened and you have not developed a degree of heart failure. Print Language: Thai Coding Level of Care Code ED [employer] for Daniela Rea
[2025-06-02 16:54] LABS: Hematocrit 36.0 % (36-47); Hemoglobin 11.70 g/dL (11.27-16.99); Mean Corpuscular HGB Conc 32.5 g/dL (30-55); Mean Corpuscular Hemoglobin 31.5 pg (27-33); Mean Corpuscular Volume 97.0 fl (85-98); Nucleated Red Blood Cells % 0 %; Platelet Count 198 10^3/cmm (157-399); Red Blood Count 3.71 10^6/uL (3.85-5.65); White Blood Count 5.73 10^3/uL (3.29-11.43)
[2025-06-02 17:02] LABS: Glucose Urine UA 2+ (Normal); Nitrate Urine Negative (Negative); Specific Gravity, Urine 1.010 (1.005-1.030)
[2025-06-02 17:06] LABS: Add Urine Microscopic? YES
[2025-06-02 17:15] LABS: Troponin(5th) Baseline 34 ng/L (0-10)
[2025-06-02 17:24] LABS: Alanine Aminotransferase 8 U/L (0-33); Albumin Level 3.6 g/dL (3.5-5.2); Alkaline Phosphatase 92 U/L (35-105); Anion Gap 13.6 (5-19); Aspartate Amino Transferase 18 U/L (0-32); Blood Urea Nitrogen 29 mg/dL (8-23); Calcium 9.2 mg/dL (8.5-10.5); Carbon Dioxide 27 mmol/L (22-29); Chloride 99 mmol/L (98-107); Creatinine Clr Calc Pharmacy 24.0594; Globulin 2.1 g/dL (1.3-4.6); Glucose 135 mg/dL (65-115); NT Pro B Type Natriuretic Pept 1091 pg/mL (0-450); Osmolality Calculated 288 mOsm/kg (285-295); Potassium 4.6 mmol/L (3.5-5.1); Sodium 135 mmol/L (136-145); Total Protein 5.7 g/dL (6.6-8.7)
[2025-06-02 17:51] VITALS: BP 123/69; PULSE 60; O2SAT 100
--- NOTE | 2025-06-02 18:19 | ECG_ITS ---
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 Measurements Intervals [place] Rate: 58 P: 0 VA: 160 QRS: 7 QRSD: 105 T: 38 QT: 399 QTc: 394 Interpretive Statements SINUS BRADYCARDIA No previous ECG available for comparison Electronically Signed On 06-03-2025 21:45:58 CDT by Jhon Heck M.D. [id number]
[2025-06-02 18:28] VITALS: BP 144/73; PULSE 56; O2SAT 99
[2025-06-02] MEDS: HYDROcodone-acetaminophen 7.5-325 mg Tablet 1 TAB PO (18:35)
[2025-06-02 18:36] VITALS: BP 134/64; PULSE 66; O2SAT 99
[2025-06-02 19:11] VITALS: BP 144/74; PULSE 54; O2SAT 96
== END 2025-06-02 19:13 | disposition home or self-care (01) ==
PROVIDERS: Emergency Provider Emergency Medicine; PCP Family Medicine
DX: R60.0 Localized edema (principal); I87.2 Venous insufficiency (chronic) (peripheral); R79.89 Other specified abnormal findings of blood chemistry; E11.22 Type 2 diabetes mellitus with diabetic chronic kidney disease; I12.9 Hypertensive chronic kidney disease with stage 1 through stage 4 chronic kidney disease, or unspecified chronic kidney disease; N18.4 Chronic kidney disease, stage 4 (severe); Z87.891 Personal history of nicotine dependence; Z79.82 Long term (current) use of aspirin
CPT/HCPCS: 36415; 80053; 81001; 83880; 84484; 85025; 93005; 99284; J9999

== ENCOUNTER 2025-07-08 14:45 | Outpatient (CLI) | payer OTHER, MEDICAID, SELFPAY ==
--- NOTE | 2025-07-08 14:55 | USCV_ITS ---
Iesha Fernandez Age: 85 Gender: F : 1940 Exam Date: 07/08/2025 15:06 Ordering Phys: Wen Fine MD Technologist: Exam Location: [facility] [place] Indication: pedal edema BP: 130 / 73 HR: 65 Rhythm: Sinus Technical Quality: Adequate MEASUREMENTS (Male / Female) Normal Values 2D ECHO LV Diastolic Diameter PLAX 4.1 cm 4.2 - 5.9 / 3.9 - 5.3 cm IVS Diastolic Thickness 1.2 cm 0.6 - 1.0 / 0.6 - 0.9 cm IVS Systolic Thickness 1.5 cm LVPW Diastolic Thickness 1.2 cm 0.6 - 1.0 / 0.6 - 0.9 cm LVPW Systolic Thickness 1.5 cm LVOT Diameter 2.1 cm LV Ejection Fraction 2D Teich 67.7 % LV Ejection Fraction MOD 4C 67.9 % LV Ejection Fraction MOD 2C 76.5 % LV Ejection Fraction 2C AL 76.5 % LA Diameter 4.2 cm RA Systolic Volume 4C AL 42.9 ml RA Systolic Volume 4C MOD 41.0 ml Aorta at Sinotubular Diameter 2.5 cm IVC Diameter 1.2 cm M-MODE LA Ao Ratio MM 1.2 AV Cusp Separation MM 2.0 cm DOPPLER AV Peak Velocity 135.0 cm/s LVOT Peak Velocity 103.0 cm/s AV Area Cont Eq vti 3.7 cm squared AV Area Cont Eq pk 2.6 cm squared MV Peak Velocity 197.0 cm/s MV Area PHT 2.1 cm squared Mitral E to A Ratio 0.9 TR Peak Velocity 212.0 cm/s TR Peak Gradient 18.0 mmHg PV Peak Velocity 111.0 cm/s FINDINGS Left Ventricle Normal left ventricular size, systolic function and wall thickness, with no regional wall motion abnormalities. Left ventricular ejection fraction is estimated at 60 %. Grade I/IV diastolic dysfunction (abnormal relaxation filling pattern), normal to mildly elevated filling pressures. Right Ventricle Normal right ventricular size and systolic function. Right Atrium Normal right atrial size. Left Atrium Moderately increased left atrial size. IA Septum Normal appearance of the interatrial septum. Mitral Valve Moderately thickened mitral valve. Moderate mitral annular calcification. No mitral valve stenosis. Mild mitral valve regurgitation. Aortic Valve Moderate aortic valve calcification. No aortic valve stenosis. No aortic valve regurgitation. Tricuspid Valve Normal tricuspid valve structure. No tricuspid valve stenosis or regurgitation. Normal pulmonary pressure. Pulmonic Valve Normal pulmonic valve structure. No pulmonic valve stenosis or regurgitation. Pericardium No pericardial effusion. Aorta Normal diameter of the aortic root and ascending thoracic aorta. IVC Normal IVC diameter. CONCLUSIONS Normal left ventricular size, systolic function and wall thickness, with no regional wall motion abnormalities. Left ventricular ejection fraction is estimated at 60 %. Grade I/IV diastolic dysfunction (abnormal relaxation filling pattern), normal to mildly elevated filling pressures. Moderately thickened mitral valve. Moderate mitral annular calcification. No mitral valve stenosis. Mild mitral valve regurgitation. Moderately increased left atrial size. There is no pericardial effusion. Right atrial pressure is around 5 mm of mercury. Cordell Cruz MD (Electronically Signed) Final Date: 09 July 2025 14:32 S
== END 2025-07-08 14:46 | disposition home or self-care (01) ==
LOC: RAD 14:48
PROVIDERS: PCP Internal Medicine; Visit Provider Internal Medicine
DX: I50.30 Unspecified diastolic (congestive) heart failure (principal); I35.8 Other nonrheumatic aortic valve disorders; I34.81 Nonrheumatic mitral (valve) annulus calcification; I34.0 Nonrheumatic mitral (valve) insufficiency; I51.7 Cardiomegaly
CPT/HCPCS: 93306

== ENCOUNTER → 2025-07-28 10:54 | Outpatient (BNVA) | payer OTHER, MEDICAID, SELFPAY | PROVIDERS: PCP Internal Medicine; Visit Provider Dermatology | DX: L82.1 Other seborrheic keratosis (principal); R60.0 Localized edema; L81.4 Other melanin hyperpigmentation; L57.8 Other skin changes due to chronic exposure to nonionizing radiation; D18.01 Hemangioma of skin and subcutaneous tissue; Z08 Encounter for follow-up examination after completed treatment for malignant neoplasm; Z85.828 Personal history of other malignant neoplasm of skin; L57.0 Actinic keratosis | CPT/HCPCS: 17000; 99203 ==

== ENCOUNTER → 2025-09-10 10:06 | Outpatient (BNVA) | payer OTHER, MEDICAID, SELFPAY | PROVIDERS: PCP Internal Medicine; Visit Provider Podiatrist Foot & Ankle Surgery | DX: E11.42 Type 2 diabetes mellitus with diabetic polyneuropathy (principal); L60.3 Nail dystrophy; L84 Corns and callosities; I73.9 Peripheral vascular disease, unspecified; M21.621 Bunionette of right foot; M21.622 Bunionette of left foot; M21.41 Flat foot [pes planus] (acquired), right foot; M21.42 Flat foot [pes planus] (acquired), left foot; M20.41 Other hammer toe(s) (acquired), right foot; M20.42 Other hammer toe(s) (acquired), left foot | CPT/HCPCS: 11056; 11721; 99204 ==